=== PATIENT | female | born 1975 | race African-American/Black ===

== ENCOUNTER → 2016-08-11 | Outpatient (CLI) | payer BC, OTHER ==
[~2016-08-11] MED LIST: AMINO ACID1 EACH; AMOX TR-K CLV1 EAC3 PO; AMOXICILLIN 50500 MG PO; ANTACID650 MG PO; BIRTH CONTROL; CARVEDILOL12.5 MG PO; CELLCEPT 250 M250 M1 PO; CITRATE OF MAG296 ML PO; COLACE100 MG PO; COZAAR 50 MG TA50 M2 PO; DIFLUCAN150 MG PO; DOXYCYCLINE 10100 MG PO; KEFLEX500 MG PO; LASIX 40 MG TAB40 M2 PO; MEDROXYPROGESTE10 MG PO; METOLAZONE 2.52.5 M1 PO; MYFORTIC360 MG PO; NORA-BE0.35 MG PO; NORCO 5-325 TA1 EACH PO; PERCOCET 10-321 EACH PO; PREDNISONE 5 MG5 M1 PO; PROBIOTIC1 EAC1 PO; PROGRAF1 MG PO; PROTONIX40 M2 PO; VALIUM2 MG PO; VALIUM5 MG PO; VALTREX 500 MG500 M1 PO; VITAMIN D1000 UNI2 PO; VITAMIN D2000 UNIT PO; VITAMIN D5000 UNIT; ZYRTEC10 M2 PO
== END ==
LOC: CAT 09:31
DX: K44.9 Diaphragmatic hernia without obstruction or gangrene (principal); R50.9 Fever, unspecified

== ENCOUNTER 2017-03-23 16:27 | Emergency (ER) | payer BC, OTHER ==
[~2017-03-23] VITALS: Ht 167.6 cm; Wt 70.8 kg
[2017-03-23 17:25] LABS: HEMATOCRIT 25.7 % (37.0-47.0); MCH 25.5 pg (26.0-34.0); MCHC 31.2 g/dL (28.0-37.0); MCV 81.6 fL (80.0-100.0); PLATELET COUNT 241 thou/uL (150-400); RBC 3.15 mil/uL (4.20-5.00); RDW 18.9 % (10.5-14.5); WBC 4.7 thou/uL (4.0-11.0)
[2017-03-23 17:33] LABS: ANION GAP 11 mmol/L (7-16); BUN 43 mg/dL (7-18); CALCIUM 8.7 mg/dL (8.5-10.1); CHLORIDE 105 mmol/L (98-107); CO2 22 mmol/L (21-32); CREATININE 6.6 mg/dL (0.6-1.0); GLUCOSE 93 mg/dL (74-106); POTASSIUM 3.9 mmol/L (3.5-5.1); SODIUM 138 mmol/L (136-145)
[2017-03-23 17:38] LABS: ALBUMIN 3.2 g/dL (3.4-5.0); DIRECT BILIRUBIN < 0.1 mg/dL (<0.1-0.3); SGOT 9 U/L (15-37); SGPT 12 U/L (30-65); TOTAL BILIRUBIN 0.2 mg/dL (<0.1-1.0); TOTAL PROTEIN 7.5 g/dL (6.4-8.2)
[2017-03-23 17:39] LABS: URINE BILIRUBIN NEGATIVE (Negative); URINE BLOOD NEGATIVE (Negative); URINE CLARITY CLEAR; URINE COLOR YELLOW; URINE GLUCOSE-RANDOM* NEGATIVE (Negative); URINE KETONES NEGATIVE (Negative); URINE LEUKOCYTES NEGATIVE (Negative); URINE NITRITE NEGATIVE (Negative); URINE PROTEIN (DIPSTICK) 2+ (Negative); URINE UROBILINOGEN 0.2 E.U./dl (0.2-1.0)
[2017-03-23] MEDS ORDERED: COREG25 MG PO (17:44)
[2017-03-23 17:45] LABS: BACTERIA None Seen /HPF (None Seen); CASTS None Seen /LPF (None Seen); CRYSTALS None Seen /LPF (None Seen); SQUAMOUS 0-3 Few /LPF (0-3); URINE RBC None Seen /HPF (0-2); URINE WBC 0-5 Rare /HPF (0-5)
[2017-03-23] MEDS ORDERED: VITAMIN D2000 UNIT PO (17:46)
[2017-03-23 17:48] LABS: ABSOLUTE NEUTROPHILS 3.5 thou/uL (1.4-8.2)
[2017-03-23] MEDS ORDERED: PROGRAF1 MG PO (17:48)
[2017-03-23 17:49] LABS: ANISOCYTOSIS 2+; OVALOCYTES 1+; POIKILOCYTOSIS 1+
[2017-03-23] MEDS ORDERED: TACROLIMUS1 MG PO (17:49)
[2017-03-23] MEDS ORDERED: ANTACID325 MG PO (17:51)
[2017-03-23] MEDS ORDERED: HYDRALAZINE 2525 MG PO (17:52)
[2017-03-23] MEDS ORDERED: PROTONIX40 M1 PO (17:52)
[2017-03-23] MEDS ORDERED: ZYRTEC 10 MG TA10 MG PO (17:53)
[2017-03-23] MEDS ORDERED: MYFORTIC360 MG PO (17:55)
[2017-03-23] MEDS ORDERED: HYDRALAZINE HC100 MG PO (18:08)
[2017-03-23 18:50] VITALS: BP 173/106
[2017-10-19] MEDS ORDERED: AMLODIPINE BESYL5 M1 PO (16:23)
[2017-10-19] MEDS ORDERED: COZAAR100 MG PO (16:23)
[2017-10-19] MEDS ORDERED: CARVEDILOL25 MG PO (16:23)
[2017-11-05] MEDS ORDERED: CARDURA2 MG PO (08:27)
[2017-11-05] MEDS ORDERED: PREDNISONE 5 MG5 M1 PO (08:27)
[2017-11-05] MEDS ORDERED: NEPHROCAPS SOFT1 CAP PO (08:28)
[2017-11-05] MEDS ORDERED: TUMS PO (08:28)
== END 2017-03-23 18:56 | disposition home or self-care (01) ==
LOC: ER 16:27
PROVIDERS: Emergency Medicine
DX: I16.0 Hypertensive urgency (principal); I12.9 Hypertensive chronic kidney disease with stage 1 through stage 4 chronic kidney disease, or unspecified chronic kidney disease; N18.9 Chronic kidney disease, unspecified; D64.9 Anemia, unspecified; M19.90 Unspecified osteoarthritis, unspecified site; K21.9 Gastro-esophageal reflux disease without esophagitis; Z88.1 Allergy status to other antibiotic agents

== ENCOUNTER 2017-04-17 18:15 | Emergency (ER) | payer BC, OTHER ==
[~2017-04-17] VITALS: Ht 167.6 cm; Wt 71.2 kg
[~2017-04-17 18:15] MED LIST changes: +ANTACID325 MG PO; +COREG25 MG PO; +HYDRALAZINE 2525 MG PO; +HYDRALAZINE HC100 MG PO; +PROTONIX40 M1 PO; +TACROLIMUS1 MG PO; +ZYRTEC 10 MG TA10 MG PO
[2017-04-17] MEDS ORDERED: DILTIAZEM ER360 MG PO (18:30)
[2017-04-17] MEDS ORDERED: PREDNISONE 5 MG5 M1 PO (18:31)
[2017-04-17] MEDS ORDERED: HYDROXYZINE HCL25 M1 PO (18:32)
[2017-04-17] MEDS ORDERED: OSELB75 PO (19:22)
[2017-04-17 19:29] VITALS: BP 146/95
[2017-10-19] MEDS ORDERED: COZAAR100 MG PO (16:23)
[2017-10-19] MEDS ORDERED: CARVEDILOL25 MG PO (16:23)
[2017-10-19] MEDS ORDERED: AMLODIPINE BESYL5 M1 PO (16:23)
[2017-11-05] MEDS ORDERED: PREDNISONE 5 MG5 M1 PO (08:27)
[2017-11-05] MEDS ORDERED: CARDURA2 MG PO (08:27)
[2017-11-05] MEDS ORDERED: NEPHROCAPS SOFT1 CAP PO (08:28)
[2017-11-05] MEDS ORDERED: TUMS PO (08:28)
== END 2017-04-17 19:38 | disposition home or self-care (01) ==
LOC: ER 18:15
DX: J10.1 Influenza due to other identified influenza virus with other respiratory manifestations (principal); I10 Essential (primary) hypertension; M06.9 Rheumatoid arthritis, unspecified; K21.9 Gastro-esophageal reflux disease without esophagitis; Z86.2 Personal history of diseases of the blood and blood-forming organs and certain disorders involving the immune mechanism; Z88.1 Allergy status to other antibiotic agents; Z94.0 Kidney transplant status

== ENCOUNTER 2017-04-20 19:53 | Inpatient (IN) | payer BC, OTHER ==
[~2017-04-20] VITALS: Ht 167.6 cm; Wt 71.2 kg
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
--- NOTE | ~2017-04-20 | 2DMMODE ---
[facility] [address] [place] [address] 2 D/M-MODE ECHOCARDIOGRAM Name: KOURTNEY VANCE Room #: 426-P ADM IN M.R.#: [id number] Admission: 04/21/17 Attend Phys: Solomon Taveras MD Discharge: Date of : 75 Date of Service: 04/23/17 1408 Report #: [id number] THIS REPORT FOR: //name// APPROVED REPORT Study performed: 04/23/2017 13:18:25 EXAM: Comprehensive 2D, Doppler, and color-flow Echocardiogram Patient Location: Echo lab Room #: 426 Status: routine BSA: 1.78 HR: 74 bpm BP: 131/93 mmHg Other Information Study Quality: Good Indications Hypertension/HDD 2D Dimensions RVDd: 26.41 mm LVEF(%): 63.97 (>50%) IVSd: 11.77 (7-11mm) LVOT Diam: 18.06 (18-24mm) LVDd: 47.33 mm PWd: 11.66 (7-11mm) LVDs: 30.86 (25-40mm) Aortic Root: 25.82 mm IVC: 12.00 mm Mcclain's LVEF: 63.97 % Volumes Left Atrial Volume (Systole) Single Plane 4CH: 76.48 mL Single Plane 2CH: 59.69 mL LA ESV Index: 44.00 mL/m2 Aortic Valve AoV Peak Ernie.: 1.58 m/s AO Peak Gr.: 9.95 mmHg LVOT Max P.26 mmHg LVOT Max V: 1.35 m/s ENID Vmax: 2.19 cm2 Mitral Valve E/A Ratio: 0.9 MV Decel. Time: 292.63 ms MV E Max Ernie.: 0.95 m/s [facility] [place] [address] 2 D/M-MODE ECHOCARDIOGRAM Name: KOURTNEY VANCE Room #: 426-P ADM IN M.R.#: [id number] Admission: 04/21/17 Attend Phys: Solomon Taveras MD Discharge: Date of : 75 Date of Service: 04/23/17 1408 Report #: [id number] A Ernie.: 1.06 m/s MV PHT: 84.86 ms IVRT: 96.89 ms Pulmonary Valve PV Peak Ernie.: 1.10 m/s PV Peak Gr.: 4.83 mmHg DC End Vmax: 1.31 m/s Pulmonary Vein P Vein S: 0.57 m/s P Vein A: 0.22 m/s P Vein D: 0.32 m/s P Vein A Dur.: 101.5 msec P Vein S/D Ratio: 1.78 Left Ventricle The left ventricle is normal size. There is normal LV segmental wall motion. Mild concentric left ventricular hypertrophy. The left ventricular systolic function is normal. The left ventricular ejection fraction is within the normal range. LVEF is 60-65%. Left ventricular filling pattern is normal for age. Right Ventricle The right ventricle is normal size. The right ventricular systolic function is normal. Atria Left atrium is dilated. The right atrium size is normal. Aortic Valve The aortic valve is normal in structure. Trace aortic regurgitation. There is no aortic valvular stenosis. Mitral Valve The mitral valve is normal in structure. Mild mitral regurgitation. No evidence of mitral valve stenosis. Tricuspid Valve The tricuspid valve is normal in structure. There is no tricuspid valve regurgitation noted. Pulmonic Valve The pulmonary valve is normal in structure. Trace pulmonic regurgitation. Great Vessels The aortic root is normal in size. IVC is normal in size and collapses >50% with inspiration. [facility] [address] [place] [address] 2 D/M-MODE ECHOCARDIOGRAM Name: KOURTNEY VANCE Room #: 426-P ADM IN M.R.#: [id number] Admission: 04/21/17 Attend Phys: Solomon Taveras MD Discharge: Date of : 75 Date of Service: 04/23/17 1408 Report #: [id number] Pericardium Trace pericardial effusion. <Conclusion> The left ventricular systolic function is normal. Mild concentric left ventricular hypertrophy. There is normal LV segmental wall motion. LVEF 60-65%. Left atrium is dilated. The aortic valve is normal in structure. No stenosis. Trace aortic regurgitation. The mitral valve is normal in structure. Mild mitral regurgitation. Trace pericardial effusion. <ELECTRONICALLY SIGNED> By: Rg Swan MD, [facility] 04/23/17 1408 1408 1408 Rg Swan MD, FACC /INF
--- NOTE | ~2017-04-20 | H ---
[facility] [place] [address] HISTORY AND PHYSICAL Name: KOURTNEY VANCE Room #: 426-P ADM IN M.R.#: [id number] Admission: 04/21/17 Attend Phys: Solomon Taveras MD Discharge: Date of : 75 Report #: [id number] THIS REPORT FOR: //name// CC: Solomon Franz Box REASON FOR ADMISSION: Inability to eat and drink with decreased p.o. intake along with slurred speech. HISTORY OF PRESENT ILLNESS: This is a 41-year-old with extensive past medical history. She suffers from end-stage renal disease. She ended-up being on dialysis for some time and had a kidney transplantation after that. Her kidney transplantation lasted for a few years and was complicated by major rejection episodes, antibody-mediated, requiring numerous treatments with IVIG, Velcade, rituximab, Thymoglobulin, plasmapheresis. The most recent was back in July. She follows with Dr. Parks in our kidney clinic. She is maintained on triple immunosuppressive medications including Myfortic, Prograf, prednisone. She also carries a diagnosis of limited scleroderma/mixed connective tissue disorder. She had some issues with decreased p.o. intake in the last 24 hours. She also reported that she had some issues with slurred speech and difficulty finding speech. She was seen in the Emergency Room a few days ago and was diagnosed with flu. She was treated accordingly. However, because of the worsening of her neurological symptoms, she presented for further evaluation and management. She denies any numbness in any part of her body. No loss of power in any part of her body. No headache. She denies blurred vision. Initially, it was thought that she will be given IV fluid and discharged home. However, because of her slurred speech, she was admitted for further evaluation and management after she was found to have an abnormal CT of her head. PAST MEDICAL HISTORY: 1. Scleroderma/connective tissue disorder. 2. Hypertension. 3. Status post kidney transplantation. 4. Raynaud's phenomenon. 5. Anemia. 6. Numerous rejection episodes, antibody-mediated. 7. IJ catheter placement. 8. History of pleuritis. 9. History of pericarditis. PAST SURGICAL HISTORY: Renal transplant with numerous biopsies. MEDICATIONS: 1. Valcyte. 2. Carvedilol. 3. Tacrolimus. 4. Sodium bicarb. [address] [address] HISTORY AND PHYSICAL Name: KOURTNEY VANCE Room #: 426-P [facility] IN M.R.#: [id number] Admission: 04/21/17 Attend Phys: Solomon Taveras MD Discharge: Date of : 75 Report #: [id number] 5. Mycophenolate. 6. Diltiazem. 7. Prednisone. ALLERGIES: VANCOMYCIN. SOCIAL HISTORY: No drug or alcohol abuse. FAMILY HISTORY: Significant for hyperlipidemia and heart disease. REVIEW OF SYSTEMS: GENERAL: No fever or chills, but significant for weakness. CARDIOVASCULAR: No chest pain or palpitation. PULMONARY: No cough or hemoptysis. GASTROINTESTINAL: As per the history of present illness. GENITOURINARY: No frequency, no urgency. NEUROLOGIC: As per the history of present illness. PHYSICAL EXAMINATION: GENERAL: Alert, oriented. VITAL SIGNS: Blood pressure is marginally elevated at 135/113. HEAD AND NECK: No jugular venous distention. CHEST: Decreased air entry bilaterally. CARDIOVASCULAR: No rub detected. ABDOMEN: Soft, nontender with no tenderness over the graft. LOWER EXTREMITIES: No edema. LABORATORY DATA: Reviewed. Hemoglobin is 9.3. Anion gap is 18, BUN is 48, creatinine is 8.4 above her baseline of 6.5. Total protein is mildly elevated at 9. UA with +2 protein. Urine, yeast is present. ASSESSMENT, IMPRESSION AND PLAN: 1. Acute kidney injury. 2. Chronic kidney disease. 3. Chronic immunosuppression. 4. Abnormal CT. 5. Remote history of pericarditis and pericardial effusion. 6. Chronic immunosuppressive status. 7. Elevated protein. 8. Anemia. 9. Metabolic acidosis. 10. Recent flu. Given the CT findings, we will proceed with an MRI evaluation. We will ask Neurology to evaluate. Chest x-ray with worsening cardiomegaly and we will get an echo to evaluate given her history of pericardial effusion and pericarditis in the past. 11. Blood pressure seems to be okay and will need further adjustment of her [address] [address] HISTORY AND PHYSICAL Name: KOURTNEY VANCE Room #: 426-[facility] IN M.R.#: [id number] Admission: 04/21/17 Attend Phys: Solomon Taveras MD Discharge: Date of : 75 Report #: [id number] blood pressure medications. I will review her outpatient medications and resume. 12. Acidosis is related to her chronic kidney disease and we will resume sodium bicarb. 13. Resume her immunosuppressive medications. 14. We will coordinate care with other team members. <ELECTRONICALLY SIGNED> By: Trent Christine MD 04/21/17 1151 1016 1110 Trent Christine MD /nt
--- NOTE | ~2017-04-20 | EKG ---
[address] [facility]: [place] [address] ELECTROCARDIOGRAM REPORT Name: KOURTNEY VANCE Room #: 426-P ADM IN M.R.#: [id number] Admission: 04/21/17 Attend Phys: Solomon Taveras MD Discharge: Date of : 75 Report #: [id number] THIS REPORT FOR: //name// [facility] ED Test Date: 2017-04-20 Test Time: 21:07:25 Pat Name: KOURTNEY VANCE Department: Room: 426 Gender: F First Assist: ELEANN : 1975 Requested By: Amee Delgado Order Number: [id number] MD: Sammy Quiroz Measurements Intervals [place] Rate: 71 P: -19 [place]: 229 QRS: 90 QRSD: 103 T: 86 QT: 394 QTc: 429 Interpretive Statements Sinus rhythm Prolonged [place] interval Left atrial enlargement Borderline right axis deviation Low voltage, extremity leads Left ventricular hypertrophy Compared to ECG 05/12/2015 13:53:08 First degree AV block now present Low QRS voltage now present Left ventricular hypertrophy now present Electronically Signed On 04-21-2017 13:24:13 ACTUARIAL ASSOCIATE by Sammy Quiroz [email or web address] <ELECTRONICALLY SIGNED> By: Sammy Quiroz MD 04/21/17 1324 06 06 Sammy Quiroz MD /EPI
--- NOTE | ~2017-04-20 | HC ---
[facility] [place] [address] CONSULTATION Name: KOURTNEY VANCE Room #: 426-P [facility] IN M.R.#: [id number] Admission: 04/21/17 Attend Phys: Solomon Taveras MD Discharge: 04/24/17 Date of : 75 Report #: [id number] THIS REPORT FOR: //name// CC: Solomon Freitas DATE OF SERVICE: 04/22/2017 HISTORY OF PRESENT ILLNESS: This is a 41-year-old female patient who was evaluated because the patient had episodes of speech difficulty. On Sunday, she had multiple episodes. It lasted few minutes. She does not believe it was associated with any focal deficit. They came spontaneously. They were moderately severe and then, they became better. REVIEW OF SYSTEMS: Pretty extensive in this patient. This patient has a history of pretty severe collagen vascular disorder. She follows up with Dr. Freitas for that. She has kidney failure and she has renal transplant. She follows up with Dr. Parks for that. Renal transplant was done at [facility]. She had a premature menopause looks like because the last period was more than a year ago. Her test is negative. She never had children. Review of systems also indicated that she recently did have influenza. She denies any prior history of stroke. She did have some headache associated with this. She used to be on dialysis. She has a history of hypertension and acid reflux disease. Otherwise, she is not complaining of any new eye, ENT, cardiac, respiratory, musculoskeletal, constitutional, dermatological, hematological, psychiatric, throat, allergic symptom associated with present symptomatology. A 14-point review of system was otherwise noncontributory. PAST MEDICAL HISTORY: Positive for renal transplant and collagen vascular disorder. FAMILY HISTORY: Unremarkable. SOCIAL HISTORY: She does not smoke or drink any alcohol. PHYSICAL EXAMINATION: Indicates she is alert, responsive, able to follow simple and complex command. Her speech, concentration, fund of knowledge and memory is at her baseline. Cranial nerve examination 2-12 is unremarkable. Strength, sensation, reflexes and tones are symmetrical. Her reflexes are still present. She has no cerebellar sign or papilledema. There is no meningeal sign. There is no carotid bruit. There is no thyroid mass. She is reasonably well-developed individual who does not have any dysmorphic features of eyes, ears and face. Her vision and hearing looks adequate. Difficult to feel pulses, but she does not appear to have any edema, cyanosis or jaundice. Cardiac examination does not appear to be showing any definite abnormality. No respiratory difficulty was noted. There is no rhonchi was noticed on either [facility] [address] [place] [address] CONSULTATION Name: KOURTNEY VANCE Room #: [address] [place] [address] IN M.R.#: [id number] Admission: 04/21/17 Attend Phys: Solomon Taveras MD Discharge: 04/24/17 Date of : 75 Report #: [id number] side. Her blood pressure is 109/71, respirations 18, pulse is 75, temperature is 98.9. LABORATORY DATA: Her last hemoglobin is 7.8. Last GFR is 7. She did have a CT scan of the head, which showed multiple lesions, but they did not appear to be acute. IMPRESSION: The patient presents with symptoms suggestive of transient ischemic attack. Her CT scan is abnormal, but she does have a pretty significant collagen vascular disorder. We need to check her for ischemic diseases including vasculitis in this patient. With that is excluded, she may also need workup for chronic immune suppression related disorder. RECOMMENDATIONS: 1. I agree with MRI. 2. We will do an MRA. 3. I agree with echo. 4. Rest of the workup will depend upon the above testing. She does need a lipid profile to evaluate for statin and I will ask the nurses to check with you to see if she can be on an aspirin. I do not know whether that is allowed with transplant or not. Thank you very much for this referral and if you have any question, please feel free to contact me. <ELECTRONICALLY SIGNED> By: Fabrice Spear MD 04/28/17 1549 1104 1750 Fabrice Spear MD /nt
[~2017-04-20 19:53] MED LIST changes: +DILTIAZEM ER360 MG PO; +HYDROXYZINE HCL25 M1 PO; +OSELB75 PO
[2017-04-20 20:10] VITALS: BP 112/76
[2017-04-20 20:55] LABS: URINE BILIRUBIN NEGATIVE (Negative); URINE BLOOD NEGATIVE (Negative); URINE CLARITY CLEAR; URINE COLOR YELLOW; URINE GLUCOSE-RANDOM* NEGATIVE (Negative); URINE KETONES NEGATIVE (Negative); URINE LEUKOCYTES NEGATIVE (Negative); URINE NITRITE NEGATIVE (Negative); URINE PROTEIN (DIPSTICK) 2+ (Negative); URINE UROBILINOGEN 0.2 E.U./dl (0.2-1.0)
[2017-04-20 21:21] LABS: BACTERIA None Seen /HPF (None Seen); CASTS None Seen /LPF (None Seen); CRYSTALS None Seen /LPF (None Seen); SQUAMOUS 4-10 Moderate /LPF (0-3); URINE RBC 0-2 Rare /HPF (0-2); URINE WBC None Seen /HPF (0-5); YEAST Present (None Seen)
[2017-04-20 22:32] LABS: HEMOGLOBIN 9.3 gm/dL (12.0-15.0); MCH 26.1 pg (26.0-34.0); MCHC 31.1 g/dL (28.0-37.0); MCV 84.1 fL (80.0-100.0); PLATELET COUNT 274 thou/uL (150-400); RBC 3.57 mil/uL (4.20-5.00); RDW 16.6 % (10.5-14.5); WBC 4.8 thou/uL (4.0-11.0)
[2017-04-20 22:47] LABS: CALCIUM 8.8 mg/dL (8.5-10.1); CREATININE 8.4 mg/dL (0.6-1.0); POTASSIUM 4.1 mmol/L (3.5-5.1)
[2017-04-20 22:51] LABS: ALBUMIN 4.1 g/dL (3.4-5.0); TOTAL BILIRUBIN 0.2 mg/dL (<0.1-1.0)
[2017-04-20 23:12] LABS: ABSOLUTE NEUTROPHILS 2.4 thou/uL (1.4-8.2); ANISOCYTOSIS 1+; POLYCHROMASIA OCCASIONAL
[2017-04-20 23:13] LABS: LARGE PLATELETS OCCASIONAL; OVALOCYTES 1+
[2017-04-21] VITALS (7 sets, daily range): BP systolic 112–146; BP diastolic 76–113
[2017-04-22 03:24] VITALS: BP 137/82
[2017-04-22 03:50] LABS: HEMATOCRIT 24.6 % (37.0-47.0); HEMOGLOBIN 7.8 gm/dL (12.0-15.0); MCH 26.3 pg (26.0-34.0); MCHC 31.6 g/dL (28.0-37.0); MCV 83.2 fL (80.0-100.0); RBC 2.96 mil/uL (4.20-5.00); RDW 16.3 % (10.5-14.5); WBC 3.1 thou/uL (4.0-11.0)
[2017-04-22 04:09] LABS: ALBUMIN 2.9 g/dL (3.4-5.0); CALCIUM 8.3 mg/dL (8.5-10.1); POTASSIUM 4.2 mmol/L (3.5-5.1); TOTAL BILIRUBIN 0.1 mg/dL (<0.1-1.0)
[2017-04-22 04:10] LABS: CREATININE 7.4 mg/dL (0.6-1.0)
[2017-04-22 07:50] VITALS: BP 109/71
[2017-04-22 09:06] LABS: COMPLEMENT-C3 161 mg/dL (82-167); COMPLEMENT-C4 39 mg/dL (14-44)
[2017-04-22 20:00] VITALS: BP 150/107
[2017-04-23 04:30] VITALS: BP 139/92
[2017-04-23 06:08] LABS: HEMATOCRIT 24.9 % (37.0-47.0); HEMOGLOBIN 7.9 gm/dL (12.0-15.0); MCH 26.2 pg (26.0-34.0); MCHC 31.5 g/dL (28.0-37.0); MCV 83.1 fL (80.0-100.0); RDW 16.2 % (10.5-14.5); WBC 3.2 thou/uL (4.0-11.0)
[2017-04-23 06:33] LABS: ALBUMIN 2.9 g/dL (3.4-5.0); CALCIUM 8.4 mg/dL (8.5-10.1); CREATININE 7.6 mg/dL (0.6-1.0); POTASSIUM 4.6 mmol/L (3.5-5.1); TOTAL BILIRUBIN 0.2 mg/dL (<0.1-1.0)
[2017-04-23 07:06] VITALS: BP 131/93
[2017-04-23 15:23] VITALS: BP 175/111
[2017-04-23 17:37] LABS: TSH 1.041 uIU/mL (0.358-3.740)
[2017-04-23 18:56] LABS: PROTIME 10.5 Seconds (9.3-11.4)
[2017-04-23 19:30] VITALS: BP 140/93
[2017-04-24 03:00] VITALS: BP 132/92
[2017-04-24 07:00] VITALS: BP 134/84
[2017-04-24 08:07] LABS: ALBUMIN 3.1 g/dL (3.4-5.0); CALCIUM 8.7 mg/dL (8.5-10.1); CREATININE 7.5 mg/dL (0.6-1.0); PHOSPHORUS 5.4 mg/dL (2.5-4.9); POTASSIUM 4.6 mmol/L (3.5-5.1)
[2017-04-24 12:28] LABS: CSF GLUCOSE 60 mg/dL (40-70); CSF PROTEIN 60 mg/dL (15-45)
[2017-04-24 12:50] LABS: CSF CLARITY CLEAR; CSF COLOR COLORLESS; CSF RBC 0 /mm3; VOLUME 9 ml
[2017-04-24 12:51] LABS: CSF WBC 2 /mm3 (0-10)
[2017-04-24] MEDS ORDERED: ASPIR 8181 MG PO (13:53)
[2017-04-24] MEDS ORDERED: CARVEDILOL12.5 MG PO (13:53)
[2017-04-24] MEDS ORDERED: TACROLIMUS1 MG PO ×2 (13:53)
[2017-04-24 14:57] VITALS: BP 122/88
[2017-04-24 15:47] VITALS: BP 134/84
[2017-04-24 15:58] LABS: CHOLESTEROL 201 mg/dL (<200); HDL CHOLESTEROL 48 mg/dL (>40); LDL CHOLESTEROL 134 mg/dL (<100); TC:HDL 4.2 Ratio (Not establshd); TRIGLYCERIDE 95 mg/dL (<150); VLDL 19 mg/dL (<40)
[2017-04-24 17:12] VITALS: BP 122/88
[2017-04-24] MEDS ORDERED: VALTREX 500 MG500 MG PO (17:32)
[2017-04-24 18:10] LABS: ANA INTERPRETATION Positive (())
[2017-04-24 23:07] LABS: SERUM ALBUMIN 3.7 g/dL (3.5-5.5)
[2017-04-26 14:13] LABS: CSF IgG 10.1 mg/dL (0.0-8.6)
[2017-10-19] MEDS ORDERED: COZAAR100 MG PO (16:23)
[2017-10-19] MEDS ORDERED: AMLODIPINE BESYL5 M1 PO (16:23)
[2017-10-19] MEDS ORDERED: CARVEDILOL25 MG PO (16:23)
[2017-11-05] MEDS ORDERED: PREDNISONE 5 MG5 M1 PO (08:27)
[2017-11-05] MEDS ORDERED: CARDURA2 MG PO (08:27)
[2017-11-05] MEDS ORDERED: TUMS PO (08:28)
[2017-11-05] MEDS ORDERED: NEPHROCAPS SOFT1 CAP PO (08:28)
== END 2017-04-24 17:51 | disposition home or self-care (01) | DRG 947 ==
LOC: ER 19:53 → 4E 04-21 00:09 → EROBS 04-21 00:09 → 4E 04-21 01:26
PROVIDERS: Hospitalist; Internal Medicine Nephrology; Nurse Practitioner Family; Psychiatry & Neurology Neuromuscular Medicine
PROC: B01B1ZZ Fluoroscopy of Spinal Cord using Low Osmolar Contrast (ICD-10-PCS; principal; 2017-04-24)
PROC: 009U3ZX Drainage of Spinal Canal, Percutaneous Approach, Diagnostic (ICD-10-PCS; principal; 2017-04-24)
DX: R53.1 Weakness (principal); N18.6 End stage renal disease; E87.2 Acidosis; R47.01 Aphasia; Z94.0 Kidney transplant status; N17.9 Acute kidney failure, unspecified; I12.0 Hypertensive chronic kidney disease with stage 5 chronic kidney disease or end stage renal disease; D64.9 Anemia, unspecified; E86.0 Dehydration; I73.00 Raynaud's syndrome without gangrene; M34.9 Systemic sclerosis, unspecified; M32.9 Systemic lupus erythematosus, unspecified; Z79.899 Other long term (current) drug therapy; Z83.49 Family history of other endocrine, nutritional and metabolic diseases; Z88.1 Allergy status to other antibiotic agents; Z82.49 Family history of ischemic heart disease and other diseases of the circulatory system
CPT/HCPCS: 10084

== ENCOUNTER 2017-06-26 22:41 | Emergency (ER) | payer BC, OTHER ==
[~2017-06-26] VITALS: Ht 167.6 cm; Wt 72.1 kg
[~2017-06-26 22:41] MED LIST changes: +ASPIR 8181 MG PO; +VALTREX 500 MG500 MG PO
[2017-06-26] MEDS ORDERED: COREG25 MG PO (23:05)
[2017-06-26] MEDS ORDERED: TUMS PO (23:08)
[2017-06-26] MEDS ORDERED: VALACYCLOVIR500 MG PO (23:08)
[2017-06-26 23:55] LABS: CALCIUM 9.6 mg/dL (8.5-10.1); POTASSIUM 4.9 mmol/L (3.5-5.1)
[2017-06-26 23:59] LABS: ALBUMIN 3.9 g/dL (3.4-5.0); TOTAL BILIRUBIN 0.3 mg/dL (<0.1-1.0); TOTAL PROTEIN 8.6 g/dL (6.4-8.2)
[2017-06-27 00:15] LABS: URINE BILIRUBIN NEGATIVE (Negative); URINE BLOOD NEGATIVE (Negative); URINE CLARITY CLEAR; URINE COLOR YELLOW; URINE GLUCOSE-RANDOM* NEGATIVE (Negative); URINE KETONES NEGATIVE (Negative); URINE LEUKOCYTES NEGATIVE (Negative); URINE NITRITE NEGATIVE (Negative); URINE PROTEIN (DIPSTICK) 2+ (Negative); URINE SPECIFIC GRAVITY 1.015 (1.005-1.035); URINE UROBILINOGEN 0.2 E.U./dl (0.2-1.0)
[2017-06-27 00:27] LABS: CASTS None Seen /LPF (None Seen); MUCUS None Seen strn/LPF (None Seen); SQUAMOUS 0-3 Few /LPF (0-3)
[2017-06-27 00:28] LABS: URINE RBC None Seen /HPF (0-2); URINE WBC None Seen /HPF (0-5)
[2017-06-27 00:29] LABS: BACTERIA None Seen /HPF (None Seen); CRYSTALS None Seen /LPF (None Seen)
[2017-06-27 00:32] LABS: HEMATOCRIT 35.1 % (37.0-47.0); HEMOGLOBIN 11.1 gm/dL (12.0-15.0); MCH 28.4 pg (26.0-34.0); MCHC 31.6 g/dL (28.0-37.0); PLATELET COUNT 236 thou/uL (150-400); RDW 19.7 % (10.5-14.5); WBC 4.7 thou/uL (4.0-11.0)
[2017-06-27 00:50] LABS: ABSOLUTE NEUTROPHILS 3.5 thou/uL (1.4-8.2); ANISOCYTOSIS 2+; METAMYELOCYTES 1 %
[2017-06-27 00:51] LABS: OVALOCYTES 1+; POLYCHROMASIA 1+
[2017-06-27] MEDS ORDERED: ZOFRAN ODT8 MG PO (01:34)
[2017-06-27 01:47] VITALS: BP 137/81
== END 2017-06-27 01:49 | disposition home or self-care (01) ==
LOC: ER 22:41
PROVIDERS: Emergency Medicine; Physician Assistant
DX: R19.7 Diarrhea, unspecified (principal); M32.9 Systemic lupus erythematosus, unspecified; I12.9 Hypertensive chronic kidney disease with stage 1 through stage 4 chronic kidney disease, or unspecified chronic kidney disease; N18.9 Chronic kidney disease, unspecified; Z94.0 Kidney transplant status; M19.90 Unspecified osteoarthritis, unspecified site; K21.9 Gastro-esophageal reflux disease without esophagitis

== ENCOUNTER → 2017-12-07 | Outpatient (CLI) | payer BC, OTHER ==
[~2017-12-07] MED LIST changes: +AMLODIPINE BESYL5 M1 PO; +CARDURA2 MG PO; +CARVEDILOL25 MG PO; +COZAAR100 MG PO; +NEPHROCAPS SOFT1 CAP PO; +TUMS PO; +VALACYCLOVIR500 MG PO; +ZOFRAN ODT8 MG PO
== END ==
LOC: RAD 13:57
DX: I51.7 Cardiomegaly (principal); J98.11 Atelectasis; J18.9 Pneumonia, unspecified organism

== ENCOUNTER 2018-01-05 13:28 | Inpatient (IN) | payer OTHER ==
[~2018-01-05] VITALS: Ht 167.6 cm; Wt 65.7 kg
--- NOTE | ~2018-01-05 | HC ---
[facility] [place] [address] CONSULTATION Name: KOURTNEY VANCE Room #: 455-P ADM IN M.R.#: [id number] Admission: 01/05/18 Attend Phys: Carl Metz MD Discharge: Date of : 75 Report #: [id number] THIS REPORT FOR: //name// CC: FAM unknown Carl Metz REASON FOR CONSULTATION: Not feeling well, fever of few weeks' duration. HISTORY OF PRESENT ILLNESS: This is a very well-known patient to me. She has an end-stage renal disease, who is maintained on dialysis every Sunday, and Sunday. She has a very complicated renal history, including dialysis from 8718-9551, utilizing a tunneled IJ catheter and class 3 and 5 lupus nephritis. In 2010, she received a donor kidney graft. This had functioned well until 2017, when the kidney failed and the patient was back on dialysis. Her post-transplant period was complicated by numerous episodes of rejection, including an antibody-mediated rejection in 2011, 2012 and 2016. She had been suffering from anemia for some time. She presented to the Emergency Room reporting that she has had some fever, right groin swelling. She also reported to some cough in the last couple of weeks. She has been feeling weak and tired. She tells me that her anemia has never been investigated. She is maintained on appropriate medications for her anemia in our dialysis unit. She only takes prednisone right now as a sort of immunosuppressive medication. She is off the Myfortic and Prograf. I am being consulted to manage her end-stage renal disease. PAST MEDICAL HISTORY: 1. Limited scleroderma. 2. Lupus nephritis. 3. Rheumatoid arthritis. 4. Hypertension. 5. End-stage renal disease. 6. Status post kidney transplant. 7. Numerous antibody-mediated rejection episodes. ALLERGIES: VANCOMYCIN. SOCIAL HISTORY: No drug or alcohol abuse. MEDICATIONS: Currently, the patient is maintained on the followin. Cardura. 2. Carvedilol. 3. Amlodipine. 4. Losartan. 5. Prednisone. 6. Calcium carbonate. REVIEW OF SYSTEMS: [facility] [address] [place] [address] CONSULTATION Name: KOURTNEY VANCE Room #: 455-P ADM IN M.R.#: [id number] Admission: 01/05/18 Attend Phys: Carl Metz MD Discharge: Date of : 75 Report #: [id number] GENERAL: Significant for fever and chills. CARDIOVASCULAR: Occasional cough and shortness of breath. PULMONARY: Occasional cough. GASTROINTESTINAL: Occasional nausea. GENITOURINARY: No frequency. LYMPHATIC AND HEMATOLOGIC: She reported to occasional fever and right groin swelling. PHYSICAL EXAMINATION: GENERAL: She is alert, oriented. VITAL SIGNS: Blood pressure is 146/89, pulse rate is 89. HEAD AND NECK: No jugular venous distention. CHEST: Decreased air entry bilaterally. CARDIOVASCULAR: Systolic murmur present. ABDOMEN: Soft, nontender. LOWER EXTREMITIES: There is a right groin swelling. No edema. LABORATORY DATA: Laboratory values reviewed. Hemoglobin was 6.6. Chemistry revealed sodium of 130, potassium of 4, BUN of 13 and creatinine of 5.6. Urine is pending. IMAGING: Chest x-ray was consistent with pulmonary edema. ASSESSMENT, IMPRESSION AND PLAN: 1. Symptomatic anemia. 2. End-stage renal disease. 3. Failed kidney transplant, status post numerous immunosuppressive medications for her antibody-mediated rejection. 4. Lupus. 5. Scleroderma. 6. Right groin swelling. 7. Pulmonary edema. 8. The patient was transfused yesterday. I will send appropriate anemia workup to rule out all possibilities, including hemolysis and other disease entities commonly seen in transplant patients who receive numerous immunosuppressive medications. 9. Might need Hematology to see. 10. Evaluate her right groin swelling with a CT. 11. Hemodialysis like her usual. 12. Once we obtain the iron studies, we will decide about the adjustment of her outpatient medications. <ELECTRONICALLY SIGNED> By: Trent Christine MD 01/09/18 0956 1015 2159 Trent Christine MD /nt
[2018-01-05 13:45] VITALS: BP 135/77
[2018-01-05 14:16] LABS: HEMOGLOBIN 6.6 gm/dL (12.0-15.0); MCH 27.4 pg (26.0-34.0); MCHC 33.6 g/dL (28.0-37.0); MCV 81.6 fL (80.0-100.0); PLATELET COUNT 247 thou/uL (150-400); RBC 2.42 mil/uL (4.20-5.00); WBC 4.4 thou/uL (4.0-11.0)
[2018-01-05 14:21] LABS: CALCIUM 8.4 mg/dL (8.5-10.1); CREATININE 4.3 mg/dL (0.6-1.0); POTASSIUM 3.2 mmol/L (3.5-5.1)
[2018-01-05 14:24] LABS: HEMATOCRIT 19.7 % (37.0-47.0)
[2018-01-05 15:22] LABS: ABSOLUTE NEUTROPHILS 2.7 thou/uL (1.4-8.2); ATYPICAL LYMPHS 2 %
[2018-01-05 15:23] LABS: MICROCYTES 1+
[2018-01-05 17:28] LABS: TSH 2.846 uIU/mL (0.358-3.740)
[2018-01-05 17:38] VITALS: BP 131/85
[2018-01-05 18:37] VITALS: BP 131/85
[2018-01-05 19:58] VITALS: BP 138/94; BP 150/83
[2018-01-06 04:23] VITALS: BP 157/111
[2018-01-06 05:55] LABS: HEMATOCRIT 22.5 % (37.0-47.0); HEMOGLOBIN 7.6 gm/dL (12.0-15.0); MCH 27.9 pg (26.0-34.0); MCHC 33.6 g/dL (28.0-37.0); MCV 83.1 fL (80.0-100.0); RBC 2.71 mil/uL (4.20-5.00); RDW 18.5 % (10.5-14.5); WBC 6.3 thou/uL (4.0-11.0)
[2018-01-06 06:10] LABS: CALCIUM 8.4 mg/dL (8.5-10.1); MAGNESIUM 1.9 mg/dL (1.8-2.4)
[2018-01-06 06:12] LABS: CREATININE 5.6 mg/dL (0.6-1.0)
[2018-01-06 08:00] VITALS: BP 146/89
[2018-01-06 15:16] VITALS: BP 139/97
[2018-01-06 18:35] LABS: URINE BLOOD 3+ (Negative); URINE CLARITY CLEAR; URINE COLOR RED; URINE GLUCOSE-RANDOM* NEGATIVE (Negative); URINE KETONES NEGATIVE (Negative); URINE PROTEIN (DIPSTICK) 3+ (Negative)
[2018-01-06 18:42] LABS: ICTOTEST (BILI CONFIRMATORY) Negative (Negative); URINE BILIRUBIN NEGATIVE (Negative); URINE LEUKOCYTES-REFLEX TRACE (Negative); URINE NITRITE-REFLEX POSITIVE (Negative)
[2018-01-06 19:00] LABS: CASTS None Seen /LPF (None Seen); CRYSTALS None Seen /LPF (None Seen); SQUAMOUS 0-3 Few /LPF (0-3); URINE RBC >20 Many /HPF (0-2); URINE WBC-REFLEX 6-15 Few /HPF (0-5); WBC CLUMPS Moderate (None Seen)
[2018-01-06 19:37] VITALS: BP 143/98
[2018-01-07] VITALS (7 sets, daily range): BP systolic 137–168; BP diastolic 98–117
[2018-01-07 07:54] LABS: ALBUMIN 2.1 g/dL (3.4-5.0); CALCIUM 8.4 mg/dL (8.5-10.1); POTASSIUM 4.2 mmol/L (3.5-5.1); TOTAL BILIRUBIN 0.4 mg/dL (<0.1-1.0); TOTAL PROTEIN 8.1 g/dL (6.4-8.2)
[2018-01-07 09:02] LABS: % SATURATION 34 % (20-39); IRON 37 ug/dL (50-170); TIBC 110 ug/dL (250-450)
[2018-01-07 12:06] LABS: COMPLEMENT-C3 119 mg/dL (82-167); COMPLEMENT-C4 22 mg/dL (14-44); HAPTOGLOBIN 439 mg/dL (34-200)
[2018-01-08 03:26] VITALS: BP 148/91
[2018-01-08 06:08] LABS: CALCIUM 8.4 mg/dL (8.5-10.1); MAGNESIUM 1.9 mg/dL (1.8-2.4); POTASSIUM 4.3 mmol/L (3.5-5.1)
[2018-01-08 06:09] LABS: CREATININE 9.6 mg/dL (0.6-1.0)
[2018-01-08 07:49] VITALS: BP 151/108
[2018-01-08 07:51] VITALS: BP 145/99
[2018-01-08 08:49] LABS: HEMOGLOBIN 7.9 gm/dL (12.0-15.0); MCH 27.4 pg (26.0-34.0); MCHC 33.1 g/dL (28.0-37.0); MCV 82.6 fL (80.0-100.0); RBC 2.9 mil/uL (4.20-5.00); RDW 19.4 % (10.5-14.5); WBC 6.7 thou/uL (4.0-11.0)
[2018-01-08 14:37] VITALS: BP 140/91
[2018-01-09 00:06] LABS: ADENOVIRUS Negative (Negative); INFLUENZA A Negative (Negative); INFLUENZA B Negative (Negative); METAPNEUMOVIRUS Negative (Negative); PARAINFLUENZA 1 Negative (Negative); PARAINFLUENZA 2 Negative (Negative); PARAINFLUENZA 3 Negative (Negative); RHINOVIRUS Negative (Negative); RSV A Negative (Negative); RSV B Negative (Negative)
[2018-01-09 04:07] VITALS: BP 122/78
[2018-01-09 05:53] LABS: HEMATOCRIT 22.4 % (37.0-47.0); HEMOGLOBIN 7.5 gm/dL (12.0-15.0); MCH 27.8 pg (26.0-34.0); MCHC 33.6 g/dL (28.0-37.0); MCV 82.7 fL (80.0-100.0); RBC 2.71 mil/uL (4.20-5.00); RDW 19.1 % (10.5-14.5); WBC 6.8 thou/uL (4.0-11.0)
[2018-01-09 06:02] LABS: CALCIUM 7.7 mg/dL (8.5-10.1); MAGNESIUM 1.8 mg/dL (1.8-2.4); POTASSIUM 4.5 mmol/L (3.5-5.1)
[2018-01-09 06:23] LABS: CREATININE 6.4 mg/dL (0.6-1.0)
[2018-01-09 07:35] VITALS: BP 136/91
[2018-01-09] MEDS ORDERED: MUCINEX600 MG PO (13:21)
[2018-01-09 13:22] VITALS: BP 137/96
[2018-01-09 13:35] VITALS: BP 136/91
[2018-01-14] MEDS ORDERED: VALACYCLOVIR500 MG PO (14:42)
[2018-01-14] MEDS ORDERED: NORVASC5 MG PO (15:12)
[2018-01-14] MEDS ORDERED: COREG25 MG PO (15:13)
[2018-01-14] MEDS ORDERED: COZAAR 25 MG TA25 M2 PO (15:15)
== END 2018-01-09 14:49 | disposition home or self-care (01) | DRG 682 ==
LOC: ER 13:28 → EROBS 16:37 → 4W 16:37
PROVIDERS: Hospitalist; Internal Medicine; Physician Assistant
PROC: 30233N1 Transfusion of Nonautologous Red Blood Cells into Peripheral Vein, Percutaneous Approach (ICD-10-PCS; principal; 2018-01-05)
PROC: 5A1D70Z Performance of Urinary Filtration, Intermittent, Less than 6 Hours Per Day (ICD-10-PCS; 2018-01-08)
DX: I12.0 Hypertensive chronic kidney disease with stage 5 chronic kidney disease or end stage renal disease (principal); N18.6 End stage renal disease; J96.01 Acute respiratory failure with hypoxia; Z94.0 Kidney transplant status; E87.1 Hypo-osmolality and hyponatremia; M06.9 Rheumatoid arthritis, unspecified; K21.9 Gastro-esophageal reflux disease without esophagitis; M32.9 Systemic lupus erythematosus, unspecified; D63.8 Anemia in other chronic diseases classified elsewhere; J20.8 Acute bronchitis due to other specified organisms; M34.9 Systemic sclerosis, unspecified; I73.00 Raynaud's syndrome without gangrene; R59.1 Generalized enlarged lymph nodes; Z99.2 Dependence on renal dialysis; Z79.899 Other long term (current) drug therapy; Z88.1 Allergy status to other antibiotic agents
CPT/HCPCS: 10045; 32100

== ENCOUNTER 2018-01-15 05:32 | Day surgery (SDC) | payer OTHER ==
[~2018-01-15] VITALS: Ht 152.4 cm; Wt 57.6 kg
--- NOTE | ~2018-01-15 | O ---
[facility] [place] [address] OPERATIVE REPORT Name: KOURTNEY VANCE Room #: DEP [facility] M.R.#: [id number] Admission: 01/15/18 Attend Phys: Sree Chadwick MD, Discharge: 01/15/18 Date of : 75 Report #: [id number] THIS REPORT FOR: //name// CC: FAM unknown Sree Chadwick DATE OF SERVICE: 01/15/2018 PREOPERATIVE DIAGNOSIS: Generalized lymphadenopathy with significant right groin lymphadenopathy. POSTOPERATIVE DIAGNOSIS: Generalized lymphadenopathy with significant right groin lymphadenopathy. PROCEDURE PERFORMED: Excision of superficial and deep right groin lymph nodes. SURGEON: Sree Chadwick M.D. SUPERVISOR EVAPORATOR: Medical student. ANESTHESIA: General endotracheal anesthesia. ESTIMATED BLOOD LOSS: Minimal (less than 5 mL). COMPLICATIONS: None appreciated. SPECIMENS: Lymph nodes from right groin to pathology. INDICATIONS: The patient is a 42-year-old -Spanish female with generalized lymphadenopathy that is significantly worsened in the right groin with associated discomfort. Concern was for a neoplastic process versus viral infectious process and as such, indication was for excisional biopsy today, which included both superficial and deep lymph nodes as they were matted together and the deep subfascial nodes require additional dissection. DESCRIPTION OF PROCEDURE: After explaining the risks, benefits and alternatives of the procedure with the patient in detail and obtaining consent, the patient was brought to the operating room and placed supine on the operating room table. After conducting a thorough timeout procedure verifying correct patient and procedure, the patient was given general endotracheal anesthesia. Once adequate anesthesia was obtained, her SCDs were hooked up to pneumatic compression device and she was given a preoperative dose of antibiotics in line with the SCIP protocol. The patient's abdomen was prepped and draped in standard surgical sterile fashion. A 10 mL of 0.5% Marcaine with epinephrine were used to anesthetize the skin overlying the right groin lymph nodes in question. A #10 bladed scalpel was used to create a 3 cm oblique incision following skin lines [address] [address] OPERATIVE REPORT Name: KOURTNEY VANCE Room #: DEP [facility] M.R.#: [id number] Admission: 01/15/18 Attend Phys: Sree Chadwick MD, Discharge: 01/15/18 Date of : 75 Report #: [id number] overlying the mass in question. Electrocautery was used to carry this down through skin and subcutaneous tissues to ensure hemostasis. I was able to circumferentially dissect out the superficial nodes, which were matted to deep nodes in the subfascial space and as such, the fascia was opened with electrocautery allowing me to elevate the deep nodes into the wound. The handheld Harmonic device was used to transect all lymphovascular structures to prevent lymphocele formation. Once transected, this was passed off the field as specimen. The wound was irrigated. Fascia was closed using 3-0 Vicryl in standard running fashion. I then closed the skin at the dermal level using interrupted 3-0 Vicryl sutures in standard fashion as well as skin was closed using running 4-0 Monocryl in standard subcuticular fashion. Dermabond glue was then applied to the skin wound. At the end of the procedure, all instrument, needle and sponge counts were correct. The patient tolerated the procedure without incident, was awakened in the operating room, transitioned to the recovery room in stable condition with no apparent complications. <ELECTRONICALLY SIGNED> By: Sree Chadwick MD, FACS 02/04/18 0902 1248 1324 Sree Chadwick MD, FACS /nt
--- NOTE | ~2018-01-15 | PATH ---
[facility] [address] [place] [address] PATHOLOGY RPT PROCEDURE Name: KOURTNEY VANCE Room #: DEP [facility] M.R.#: [id number] Admission: 01/15/18 Date of : 75 Discharge: 01/15/18 Report #: [id number] Path Case #: [id number] [facility] Accession Number: [id number] . 01 Material submitted: . RIGHT GROIN LYMPH NODE-F.S . 01 Clinical history: . Lymphadenitis and numerous enlarged lymph nodes in the groin. . 02 Diagnosis: Lymph node, right groin, excision: - Lymph node with mild acute lymphadenitis, reactive follicles, sinus histiocytosis, paracortical hyperplasia and sinusoidal plasmacytosis, please see comment. LBQ/01/23/2018 . 02 Comment: Examination of the right groin lymph node shows slightly effaced jose architecture with patent subcapsular sinuses with occasional reactive follicles, sinus histocytosis and sinusoidal plasmacytosis. There is also mild acute lymphadenitis noted. Definite Warren-Ruthie cells, metastatic carcinoma or granulomas are not identified. Immunophenotypic studies by flow cytometry do not show evidence of R-tyc-Ufxdsmq lymphoma and T-cell lymphoproliferative disorder (please see separate flow cytometry report, [facility] [id number]). To confirm flow cytometric findings and characterize the lymphoid cells in a tissue architectural context, immuohistochemical stains are performed with appropriate controls: . (Block A3) CD20 - Highlights B lymphoid cells within germinal centers and mantle zones CD3 - Highlights T lymphoid cells CD5 - Highlights T lymphoid cells CD10 - Highlights B lymphoid cells within germinal centers BCL6 - Highlights B lymphoid cells within germinal centers BCL2 - Highlights B and T lymphoid cells with lack of staining within germinal centers. CD30 - Highlights few scattered immunoblasts BCL1 - Negative CD138 - Highlights plasma cells CD23 - Highlights follicular dendritic meshworks [place] and lambda NADEEM - Polytypic . Based on the morphology, immunohistochemical staining pattern and flow cytometry, these findings are consistent with benign reactive lymph node. [address] [address] PATHOLOGY RPT PROCEDURE Name: KOURTNEY VANCE Room #: DEP [facility] M.R.#: [id number] Admission: 01/15/18 Date of : 75 Discharge: 01/15/18 Report #: [id number] Path Case #: [id number] Correlation and clinical findings is recommended. . (RA/[place]; 01/22/18) . Co-Review: Dr. Jessika Michaels . 02 Electronically signed: . Kaylene Dillard MD, Pathologist NPI- [id number] . 01 Gross description: . Specimen is received fresh from the OR labeled with the patient's name and "right groin lymph nodes", and consists of multiple enlarged lymph nodes measuring approximately 4.0 x 3.0 x 2.0 cm. Three are approximately four different lymph nodes ranging from 1.2 cm to the largest measuring 3.0 cm. The lymph nodes are bivalved, touch preparation is made labeled as TPA1. A small portion of each of these lymph nodes is placed in RPMI and sent to [facility] for flow cytometric analysis. The lymph nodes are entirely submitted in A1 to A6. . (IUV:pit 01/15/2018) . Touch preparation performed at [facility], [address] [place] [address] , [place] [address]. /QTP . 02 Pathologist provided ICD-10: R59.0, D72.822, I88.9 . 02 CPT . 014680, U51658, L30992, L22465, C38521 Specimen Comment: A courtesy copy of this report has been sent to Specimen Comment: [phone]. Specimen Comment: Report sent to Performed at: [address] [facility] [id number] MD Tung Hare MD Phone: [phone] Performed at: [address] [id number] MD Kaylene Dillard MD Phone: [phone]
[~2018-01-15 05:32] MED LIST changes: +COZAAR 25 MG TA25 M2 PO; +MUCINEX600 MG PO; +NORVASC5 MG PO
[2018-01-15 13:53] LABS: HEMATOCRIT 24.3 % (37.0-47.0); MCH 27.1 pg (26.0-34.0); MCHC 32.9 g/dL (28.0-37.0); MCV 82.5 fL (80.0-100.0); RBC 2.94 mil/uL (4.20-5.00); RDW 19.3 % (10.5-14.5); WBC 5.7 thou/uL (4.0-11.0)
[2018-01-15 14:00] VITALS: BP 153/76
[2018-01-15 14:09] LABS: CALCIUM 8.9 mg/dL (8.5-10.1); CREATININE 5.4 mg/dL (0.6-1.0); POTASSIUM 3.5 mmol/L (3.5-5.1)
[2018-01-15 14:15] LABS: ALBUMIN 2.5 g/dL (3.4-5.0); TOTAL BILIRUBIN 0.6 mg/dL (<0.1-1.0); TOTAL PROTEIN 9.5 g/dL (6.4-8.2)
[2018-01-15] MEDS ORDERED: NORCO 5-325 TA1 EACH PO (14:57)
[2018-01-15 15:12] VITALS: BP 153/76
== END 2018-01-15 16:00 | disposition home or self-care (01) ==
LOC: OR 05:32 → TBA 05:32 → OR 13:15
PROVIDERS: Surgery
DX: I88.9 Nonspecific lymphadenitis, unspecified (principal); D72.822 Plasmacytosis; I12.0 Hypertensive chronic kidney disease with stage 5 chronic kidney disease or end stage renal disease; N18.6 End stage renal disease; D64.9 Anemia, unspecified; Z94.0 Kidney transplant status; Z99.2 Dependence on renal dialysis; Z98.890 Other specified postprocedural states; Z79.899 Other long term (current) drug therapy
CPT/HCPCS: 50010; 50101; 50386; 52190; 54118; 56524; 56526; 57092; 62110; 62900; 70005

== ENCOUNTER 2018-01-16 13:42 | Emergency (ER) | payer OTHER ==
[~2018-01-16] VITALS: Ht 167.6 cm; Wt 58.1 kg
[2018-01-16 15:15] VITALS: BP 144/90
== END 2018-01-16 15:19 | disposition home or self-care (01) ==
LOC: ER 13:42
DX: Z48.01 Encounter for change or removal of surgical wound dressing (principal); M06.9 Rheumatoid arthritis, unspecified; M32.9 Systemic lupus erythematosus, unspecified; I10 Essential (primary) hypertension; Z94.0 Kidney transplant status; Z86.2 Personal history of diseases of the blood and blood-forming organs and certain disorders involving the immune mechanism; Z88.1 Allergy status to other antibiotic agents

== ENCOUNTER → 2018-07-22 | Outpatient (CLI) | payer OTHER ==
[2018-07-22 09:55] LABS: CREATININE 9.9 mg/dL (0.6-1.0)
== END ==
LOC: CAT 09:01
PROVIDERS: Specialist
DX: I13.11 Hypertensive heart and chronic kidney disease without heart failure, with stage 5 chronic kidney disease, or end stage renal disease (principal); N18.6 End stage renal disease; K11.1 Hypertrophy of salivary gland; R59.1 Generalized enlarged lymph nodes; M35.1 Other overlap syndromes; Z94.0 Kidney transplant status

== ENCOUNTER 2018-08-12 19:50 | Emergency (ER) | payer OTHER ==
[~2018-08-12] VITALS: Ht 167.6 cm; Wt 57.6 kg
[2018-08-12 22:59] LABS: PLATELET COUNT 168 thou/uL (150-400); RBC 3.75 mil/uL (4.20-5.00)
[2018-08-12 23:01] LABS: HEMATOCRIT 31.1 % (37.0-47.0); HEMOGLOBIN 10.3 gm/dL (12.0-15.0); MCH 27.3 pg (26.0-34.0); MCHC 32.9 g/dL (28.0-37.0); MCV 82.9 fL (80.0-100.0); RDW 21.1 % (10.5-14.5); WBC 2.8 thou/uL (4.0-11.0)
[2018-08-12 23:04] LABS: ANION GAP 12 mmol/L (7-16); BUN 55 mg/dL (7-18); CALCIUM 8.1 mg/dL (8.5-10.1); CHLORIDE 91 mmol/L (98-107); CO2 24 mmol/L (21-32); CREATININE 12.5 mg/dL (0.6-1.0); GLUCOSE 100 mg/dL (74-106); POTASSIUM 4.7 mmol/L (3.5-5.1); SODIUM 127 mmol/L (136-145)
[2018-08-12 23:13] LABS: TROPONIN-I <0.06 ng/mL (<0.06)
[2018-08-12 23:29] LABS: ABSOLUTE NEUTROPHILS 1.5 thou/uL (1.4-8.2)
[2018-08-12 23:30] LABS: ANISOCYTOSIS 2+; PLATELET ESTIMATE NORMAL; POIKILOCYTOSIS 2+; POLYCHROMASIA 1+
[2018-08-13] MEDS ORDERED: PROTONIX40 M1 PO (01:44)
[2018-08-13 01:45] VITALS: BP 141/91
--- NOTE | 2018-08-14 07:43 | EKG ---
[place] [address] [facility] [place] [address] ELECTROCARDIOGRAM REPORT Name: KOURTNEY VANCE Room #: DEP Sweetie#: [id number] ������������������ Admission: 08/12/18 ������������������ Attend Phys: Discharge: 08/13/18 ������������������ Date of : 75 Report #: [id number] ����������������������������������������������������������������� [id number] THIS REPORT FOR: //name// [facility] ED Test Date: 2018-08-12 Test Time: 22:33:54 Pat Name: KOURTNEY VANCE Department: Room: Gender: F Human Resources Operations Coordinator: Vandana Jaramillo : 1975 Requested By: Brock Mejia Order Number: [id number] MD: Rg Swan Measurements Intervals [place] Rate: 82 P: 42 MI: 196 QRS: 59 QRSD: 88 T: 101 QT: 421 QTc: 492 Interpretive Statements Sinus rhythm Poor R wave progression Borderline prolonged QT interval Compared to ECG 10/19/2017 14:11:13 No significant change was found Electronically Signed On 08-14-2018 7:42:51 CDT by Rg Swan [email or web address] ��������������������������������������������� <ELECTRONICALLY SIGNED> ���������������������������������������� By: Rg Swan MD, [facility] ��������������������������������������������� 08/14/18 0742 D: 06/2232 32 Rg Swan MD, FACC /EPI
== END 2018-08-13 01:54 | disposition home or self-care (01) ==
LOC: ER 19:50
PROVIDERS: Emergency Medicine
DX: R53.1 Weakness (principal); I10 Essential (primary) hypertension; M06.9 Rheumatoid arthritis, unspecified; M32.9 Systemic lupus erythematosus, unspecified; Z88.1 Allergy status to other antibiotic agents; Z86.2 Personal history of diseases of the blood and blood-forming organs and certain disorders involving the immune mechanism

== ENCOUNTER 2018-08-28 17:16 | Inpatient (IN) | payer OTHER ==
[~2018-08-28] VITALS: Ht 167.6 cm; Wt 58.1 kg
--- NOTE | ~2018-08-28 | O ---
[facility] [place] [address] OPERATIVE REPORT Name: KOURTNEY VANCE Room #: 455-P ADM IN M.R.#: [id number] Admission: 08/28/18 ������������������ Attend Phys: Wyatt Devine Discharge: ������������������ Date of : 75 Report #: [id number] THIS REPORT FOR: //name// CC: Cory Ornelas PREOPERATIVE DIAGNOSES: Right axillary adenopathy with renal failure, lupus, weakness and febrile illness. POSTOPERATIVE DIAGNOSES: Right axillary adenopathy with renal failure, lupus, weakness and febrile illness. PROCEDURE PERFORMED: Right axillary node biopsy. ANESTHESIA: IV sedation, local 0.25% Marcaine. FINDINGS: There are some moderately enlarged lymph nodes. Part of the largest sized lymph node was put in RPMI solution for flow cytometry. One of the lymph nodes was cut in half for culture. The rest of the node was sent in formalin. There were approximately 5 lymph nodes harvested. DESCRIPTION OF PROCEDURE: With the patient under IV sedation, the axilla was prepped and draped in a sterile fashion. A 0.25% Marcaine was used to anesthetize the skin and about a 2.5 cm incision was made over the right axilla. After incising through the skin and axillary envelope, the axillary node content was found. This was easily pulled into the incision and then the nodes were identified by cautery of the fatty tissue. The nodes were then removed. There was a chain of lymph nodes that came out pretty easily. The lymph nodes are moderately enlarged, about a centimeter and a half in size. These nodes were freed without difficulty. Total of about 5 lymph nodes were removed. Specimen was sent for proper handling as described above. Medium clips were placed for the dissection of the lymph node. The axillary envelope was closed with 4-0 PDS in running fashion. Skin was closed with 5-0 PDS in running fashion. Skin was closed with Steri-Strip, 4 x 4s, OpSite used for dressing. ��������������������������������������������� ���������������������������������������� By: ��������������������������������������������� [id number] 2203 Samir Hung MD /nt
[2018-08-28 17:33] VITALS: BP 127/90
[2018-08-28 17:48] LABS: HEMATOCRIT 34.3 % (37.0-47.0); MCH 27.1 pg (26.0-34.0); MCHC 32.1 g/dL (28.0-37.0); MCV 84.3 fL (80.0-100.0); PLATELET COUNT 125 thou/uL (150-400); RBC 4.06 mil/uL (4.20-5.00); RDW 20.4 % (10.5-14.5); WBC 2.1 thou/uL (4.0-11.0)
[2018-08-28 17:52] LABS: CALCIUM 8.1 mg/dL (8.5-10.1); CREATININE 9.4 mg/dL (0.6-1.0); POTASSIUM 4.3 mmol/L (3.5-5.1)
[2018-08-28 18:02] LABS: ALBUMIN 2.6 g/dL (3.4-5.0); TOTAL BILIRUBIN 0.7 mg/dL (<0.1-1.0); TROPONIN-I 0.14 ng/mL (<0.06)
[2018-08-28] MEDS ORDERED: ZYRTEC10 M5 PO (18:04)
[2018-08-28] MEDS ORDERED: FLONASE 0.05%50 MCG NASAL (18:04)
[2018-08-28] MEDS ORDERED: ZESTRIL40 MG PO (18:04)
[2018-08-28] MEDS ORDERED: TUMS PO (18:05)
[2018-08-28 18:28] LABS: ABSOLUTE NEUTROPHILS 0.6 thou/uL (1.4-8.2); ANISOCYTOSIS 1+; ATYPICAL LYMPHS 2 %
[2018-08-28 19:58] VITALS: BP 141/99
--- NOTE | 2018-08-28 20:21 | NUR ---
RECEIVED REPORT FROM JOSE DOMINGUEZ IN ED.
[2018-08-28 20:24] VITALS: BP 126/87
[2018-08-28 20:55] VITALS: BP 142/104
--- NOTE | 2018-08-28 20:57 | NUR ---
PT ARRIVED TO THE UNIT VIA CART, AMBULATED FROM BED TO BATHROOM THEN TO BED WITH STANDBY ASSIST, A LITTLE HYPERTENSIVE, T=99.9, BP= 142/104. GIVEN ROOM ORIENTATION, FALL CONTRACT SIGNED, UNDERSTOOD USE OF CALL LIGHT AND CALLING OUT FOR ASSISTANCE, AWARE BED ALARM IS ON, MOTHER FOLLOWED SHORTLY, MONITORED.
[2018-08-29 04:27] VITALS: BP 146/105
--- NOTE | 2018-08-29 04:35 | NUR ---
T=102.8, 103 WHEN RECHECKED, PAGED DR RICHTER VIA ANSWERING SERVICE.
--- NOTE | 2018-08-29 04:42 | NUR ---
PAGED DR RICHTER REGARDING T OF 103, ORAL, ORDER FOR ES TYLENOL 1000 MG X1 AND THEY WILL BE HERE SHORTLY, SUGGESTED LABS BUT SAID LABS LAST NOC WILL SUFFICE, CONTINUE TO ENC. PATIENT TO INCREASE ORAL INTAKE, WILL COOL THE ROOM, WILL MONITOR.
--- NOTE | 2018-08-29 06:38 | NUR ---
DR THAKUR CALLED BACK REGARDING THE CONSULT, WILL SEE PT SHORTLY.
[2018-08-29 07:06] VITALS: BP 135/95
--- NOTE | 2018-08-29 07:39 | EKG ---
[address] [place] [address] ELECTROCARDIOGRAM REPORT Name: KOURTNEY VANCE Room #: 350-P ADM IN M.R.#: [id number] ������������������ Admission: 08/28/18 ������������������ Attend Phys: Wyatt Devine Discharge: ������������������ Date of : 75 Report #: [id number] ����������������������������������������������������������������� [id number] THIS REPORT FOR: //name// [facility] ED Test Date: 2018-08-28 Test Time: 17:42:56 Pat Name: KOURTNEY VANCE Department: Room: 350 Gender: F Family Support Worker: SHITAL : 1975 Requested By: Amee Delgado Order Number: [id number] MD: Rg Swan Measurements Intervals [place] Rate: 85 P: 48 CT: 192 QRS: 104 QRSD: 110 T: 100 QT: 410 QTc: 488 Interpretive Statements Sinus rhythm Probable left atrial enlargement Right axis deviation Low voltage, extremity leads Nonspecific T abnormalities, lateral leads Borderline prolonged QT interval Compared to ECG 08/12/2018 22:33:54 Right-axis deviation now present Electronically Signed On 08-29-2018 7:39:29 CDT by Rg Swan [email or web address] ��������������������������������������������� <ELECTRONICALLY SIGNED> ���������������������������������������� By: Rg Swan MD, [facility] ��������������������������������������������� 08/29/18 0739 1742 1742 Rg Swan MD, [facility] /EPI
--- NOTE | 2018-08-29 15:28 | NUR ---
INITIAL ASSESSMENT: SW reviewed chart and spoke with nursing. Pt was admitted from home due to hyponatremia/weakness. Pt with hx of ESRD and goes to [facility] for outpatient dialysis. Pt had kidney transplant in 2010 and has since had to go on dialysis due to failed transplant. Hem/Onc consulted. Pt to have lymph node and bone marrow bx. SW met with pt at bedside. Introduced role of SW. Pt is alert/orientated x 4. Pt reports she lives at home with her family. Prior to admission, pt was independent with ADLs. No use of DME or hx of HH or SNF/Rehab placement. Pt goes to [facility] at 0545. Pt drives herself of family provides transportation Pt's PCP is Dr. Conor Ornelas. Plan is for pt to return home when medically stable. SW is following to assist as needed with discharge planning.
[2018-08-29 15:57] VITALS: BP 136/95
--- NOTE | 2018-08-29 17:52 | NUR ---
Assumed care at 0700 this AM. Patient in dialysis this morning-2.5L off per dialysis nurse. Patient running a fever again this afternoon-tylenol administered. IV zofran given for nausea. Patient stated she hasn't felt good and is shaky. Patient also nervous for biopsies to be done tomorrow. Reassurance and support given. Not much progress toward plan of care at this time.
[2018-08-29 19:40] VITALS: BP 103/74
[2018-08-29 23:37] VITALS: BP 127/89
[2018-08-30 03:58] VITALS: BP 139/93
[2018-08-30 04:37] LABS: HEMATOCRIT 30.1 % (37.0-47.0); HEMOGLOBIN 9.8 gm/dL (12.0-15.0); MCH 27.1 pg (26.0-34.0); MCHC 32.5 g/dL (28.0-37.0); MCV 83.3 fL (80.0-100.0); PLATELET COUNT 110 thou/uL (150-400); RBC 3.62 mil/uL (4.20-5.00); RDW 20.1 % (10.5-14.5)
[2018-08-30 04:49] LABS: ALBUMIN 2.2 g/dL (3.4-5.0); CALCIUM 7.8 mg/dL (8.5-10.1); POTASSIUM 3.9 mmol/L (3.5-5.1); TOTAL BILIRUBIN 0.4 mg/dL (<0.1-1.0); TOTAL PROTEIN 9.1 g/dL (6.4-8.2)
[2018-08-30 04:52] LABS: CREATININE 6.8 mg/dL (0.6-1.0)
--- NOTE | 2018-08-30 06:15 | NUR ---
PT MAKING SLOW PROGRESS TOWARDS GOALS. TREATED WITH TYLENOL ONCE OVERNIGHT FOR FEVER 102.5 ORALLY. DOES REPORT THAT SHE FEELS EXHAUSTED AND WEAK. ENCOURAGED TO USE BEDSHEET OVER BLANKETS.
[2018-08-30 06:41] LABS: ABSOLUTE NEUTROPHILS 0.8 thou/uL (1.4-8.2); ANISOCYTOSIS 2+; PLATELET ESTIMATE DECREASED; POIKILOCYTOSIS 1+
[2018-08-30 06:42] LABS: POLYCHROMASIA 1+
--- NOTE | 2018-08-30 07:13 | HC ---
[facility] [place] [address] CONSULTATION Name: KOURTNEY VANCE Room #: 350-P ADM IN M.R.#: [id number] Admission: 08/28/18 ������������������ Attend Phys: Wyatt Devine Discharge: ������������������ Date of : 75 Report #: [id number] THIS REPORT FOR: //name// CC: Trent Freitas MD REASON FOR CONSULTATION: Persistent lymphadenopathy. HISTORY OF PRESENT ILLNESS: The patient is a very pleasant 43-year-old female who has a history of lymphadenopathy for at least 6 months. This was recently rescanned and found to be stable over the last 4-5 months. She was receiving dialysis yesterday and had a fever, was admitted for probable line infection, though unclear etiology. The patient has been having persistent nausea for about 2 months now. I have seen her earlier this week about the lymphadenopathy. She previously had a lymph node biopsied back in December that showed reactive changes. There was not any granulomas metastatic carcinoma or definite Warren-Ruthie cells at that time. Also, flow cytometry did not show any specific clonal disorder. She has had continued weight loss. She has low-grade fevers, with that a high fever yesterday. She says the nausea, which she describes more in the pit of her stomach of the belly button or umbilicus is not burping or belching, just of a discomfort, not really changed by eating, drinking or defecation or urination. PAST MEDICAL HISTORY: Notable for the history of the lymphadenopathy. Also, history of rheumatoid arthritis; scleroderma; lupus; end-stage renal disease, on dialysis, status post kidney transplant that failed and rejected, also anemia; and also skin rash. Acid reflux, past history of cellulitis, also hyperglycemia. SOCIAL HISTORY: Not currently working. FAMILY HISTORY: No one recently diagnosed with cancer. Tobacco: Never smoked. Alcohol: None. MEDICATIONS: At this time in the hospital currently include fluticasone 2 sprays daily, lisinopril 40 at bedtime, doxazosin 8 mg at bedtime, Zofran p.r.n., 1 time dose of micafungin, 1 time dose of daptomycin, 1 time dose of meropenem. The patient has also had received metoclopramide. LABORATORY DATA: This admit are notable for sodium of 127, potassium 4.3, BUN of 42, creatinine 9.4, AST 55, calcium 8.1, ALT 17, total protein 10, albumin 2.6. Iron panels in 12/2017 were fairly normal. Coags have been normal in the [address] [place] [address] CONSULTATION Name: KOURTNEY VANCE Room #: 350-P ADM IN M.R.#: [id number] Admission: 08/28/18 ������������������ Attend Phys: Wyatt Devine Discharge: ������������������ Date of : 75 Report #: [id number] past. Recent white count 2.1 though earlier in July, it had been 2.8, she normally runs in the 4-6 range. Hemoglobin 11; MCV 84.3; platelets 125, in the past she usually runs in the 200 range or 168 range. Differential has a few extra lymphocytes. ANC is a little bit low at 600. Her TSH back in December had been normal. She has had multiple tests for hepatitis and influenza and RSV in the past and HIV years ago. Of particular, I can think we have checked serum protein electrophoresis in the past, but if not, we may check that given the high total protein. PHYSICAL EXAMINATION: VITAL SIGNS: The patient appears her stated age, temperature last night to 102.8. Height is 5 feet 6 inches, 167.6 cm, weight 126 pounds which is 57.2 kilograms. Blood pressure 135/95, respirations 19, pulse 88. MOOD: She is alert and pleasant. NEUROLOGIC: She is moving all extremities. Speech and thought pattern normal. LUNGS: Mostly clear without any rhonchi, rales or wheezes. HEART: Regular rate. LYMPH: The patient does have slightly enlarged lymph on both groins and also the right axilla. ABDOMEN: No hepatosplenomegaly. No masses. EXTREMITIES: Without clubbing, cyanosis or edema. ASSESSMENT AND PLAN: 1. Persistent lymphadenopathy. I had talked with Dr. Ornelas and also the patient. We will arrange for lymph node biopsy by ultrasound, particularly would prefer the right axilla. We will also arrange for bone marrow biopsy. 2. Fever, most likely line infection, on multiple anti-infectives. Cultures pending. 3. Cytopenias, likely reactive but also bone marrow, we will check, can also be related to rheumatoid arthritis/lupus. 4. History of rheumatoid arthritis. Per others. 5. Scleroderma. Per others. 6. End-stage renal disease, dialysis. Per others. 7. Hypertension, doxazosin and lisinopril. We will follow with you. ��������������������������������������������� <ELECTRONICALLY SIGNED> ���������������������������������������� By: Nelson Chen MD ��������������������������������������������� 08/30/18 0713 0900 1010 Nelson Chen MD /nt
[2018-08-30 07:31] VITALS: BP 151/91
--- NOTE | 2018-08-30 10:28 | H ---
[facility] [place] [address] HISTORY AND PHYSICAL Name: KOURTNEY VANCE Room #: 350-P ADM IN M.R.#: [id number] Admission: 08/28/18 ������������������ Attend Phys: Wyatt Devine Discharge: ������������������ Date of : 75 Report #: [id number] THIS REPORT FOR: //name// CC: Cory Ornelas DATE OF SERVICE: 08/28/2018 CHIEF COMPLAINT: Fever and weakness. HISTORY OF PRESENT ILLNESS: The patient is a 43-year-old female who presented to the Emergency Room with increasing nausea and weakness, but also an episode of fever. In recent days, there was concern of fever during her hemodialysis session recently. She has also had some swollen lymph nodes and glands for several months and some weight loss with anorexia. She is admitted for evaluation of fever to rule out infection, but also to evaluate for any potential myeloproliferative disorder related to her lymphadenopathy. PAST MEDICAL HISTORY: Rheumatoid arthritis, scleroderma, lupus, renal failure with a failed renal transplant in 2010 and now back on hemodialysis; anemia of chronic disease, hypertension. PAST SURGICAL HISTORY: As above. FAMILY HISTORY: Noncontributory. SOCIAL HISTORY: She lives at home. No chronic alcohol or tobacco use. ALLERGIES: VANCOMYCIN. MEDICATIONS: Lisinopril, Zyrtec, Flonase, calcium, Cardura, amlodipine, Coreg. REVIEW OF SYSTEMS: Denies headache, chest pain, shortness of breath, abdominal pain, nausea, vomiting, diarrhea, constipation, dysuria, syncope. OBJECTIVE: VITAL SIGNS: Temperature 37.1, pulse 88, respirations 19, blood pressure 135/95, O2 sat 100% on room air. GENERAL: She is awake and alert, in no distress. LUNGS: Clear. HEART: Regular. ABDOMEN: Soft, normoactive bowel sounds. EXTREMITIES: No edema, some palpable lymph nodes in the axilla and the groin. NEUROLOGIC: Cranial nerves intact. Speech is fluent. Motor strength 4/5. LABORATORY DATA REVIEW: Platelet count 125, hemoglobin 11, white count 2.1, albumin 2.6, creatinine 9.4. [facility] [address] [place] [address] HISTORY AND PHYSICAL Name: KOURTNEY VANCE Room #: 350-P [facility] IN M.R.#: [id number] Admission: 08/28/18 ������������������ Attend Phys: Wyatt Devine Discharge: ������������������ Date of : 75 Report #: [id number] ASSESSMENT: 1. Febrile illness. 2. Lymphadenopathy. 3. End-stage renal disease, on hemodialysis. 4. Pancytopenia. 5. Anemia of chronic renal disease. 6. Moderate protein-calorie malnutrition with albumin 2.6. PLAN: Infectious workup to begin with empiric antibiotics, pending ID assessment. I have spoken with Dr. Chen and note the plans for lymph node biopsy and bone marrow transplant. The renal service is managing dialysis and those notes are reviewed. ��������������������������������������������� <ELECTRONICALLY SIGNED> ���������������������������������������� By: Berry Sal MD ��������������������������������������������� 08/30/18 1028 0952 [id number] eBrry Sal MD /logan
--- NOTE | 2018-08-30 14:06 | NUR ---
SW reviewed chart and spoke with nursing. Pt to have abdominal US and lymph node bx today. NO weekend discharge planned. RACHEL is following to assist as needed with discharge planning.
--- NOTE | 2018-08-30 14:33 | HC ---
[facility] [place] [address] CONSULTATION Name: KOURTNEY VANCE Room #: 350-P ADM IN M.R.#: [id number] Admission: 08/28/18 ������������������ Attend Phys: Wyatt Devine Discharge: ������������������ Date of : 75 Report #: [id number] THIS REPORT FOR: //name// CC: Cory Ornelas DATE OF SERVICE: 08/29/2018 INFECTIOUS DISEASE CONSULTATION REASON FOR CONSULTATION: I was asked to evaluate concerning fever. HISTORY OF PRESENT ILLNESS: The patient is a 43-year-old with history of systemic lupus erythematosus and scleroderma with underlying hypertension, end-stage renal disease. She has been on hemodialysis for an extended period of time. She underwent renal transplantation in 2010 and subsequently developed rejection. She has been off immunosuppression now for the last month or 6 weeks. Over the last 6 months, she has had progressive lymphadenopathy, intermittent low-grade fever. Initially had biopsy, which was nondiagnostic. She is showing reactive lymphadenopathy. This was done in the right groin. She was seen in the outpatient clinic at the end of June where imaging studies including CT scan showed extensive diffuse adenopathy. I repeated her imaging studies and had difficulty getting comparisons done. These have been compared and remained stable over the last several months. She reports no new rashes. No arthritis symptoms. No headaches. She has had progressive fatigue, anorexia, some weight loss. No chest pain, palpitations, cough, or sputum production. No abdominal pain or diarrhea. Yesterday, presented to the outpatient clinic with worsening weakness. She reports increased nausea, one episode of emesis, mild photophobia, and subsequently was identified as having fever and hypotension with tachycardia. Temperature got up to 103 degrees today. She has had occasional chill, sweats. She has had no travel. She is . No HIV risk factors. She was screened several weeks ago for tuberculosis and histoplasma. These studies were negative. REVIEW OF SYSTEMS: Ten-point review is negative other than what has been described above. PAST MEDICAL HISTORY: Lymphadenopathy, rheumatoid arthritis, scleroderma, lupus, end-stage renal disease, failed renal transplant, anemia, rash, and gastroesophageal reflux. FAMILY HISTORY: Noncontributory. SOCIAL HISTORY: Nonsmoker. No alcohol intake. ALLERGIES: VANCOMYCIN with rash. [facility] [address] [place] [address] CONSULTATION Name: KOURTNEY VANCE Room #: 350-P ADM IN M.R.#: [id number] Admission: 08/28/18 ������������������ Attend Phys: Wyatt Devine Discharge: ������������������ Date of : 75 Report #: [id number] MEDICATIONS: As noted on her MAR, which are reviewed. PHYSICAL EXAMINATION: VITAL SIGNS: Temperature 103 degrees, pulse 90, blood pressure 103/74, respiratory rate 20, and oxygen saturation 100% on room air. SKIN: With faint malar rash. Multiple excoriations to her back. Diffuse adenopathy palpable in the neck, axillary region, and groin. Thin stature. EYES: Without scleral icterus. MOUTH: Without mucositis. NECK: Supple, with no thyromegaly or mass. LUNGS: Clear. Left chest tunneled dialysis catheter was nontender with no exudate. HEART: Regular, without murmur, gallop, or rub. ABDOMEN: Soft, nontender, no hepatosplenomegaly or mass. 1. Right lower quadrant, renal transplant was palpable without tenderness. GENITORECTAL: Not performed. EXTREMITIES: With no clubbing, cyanosis, or edema. NEUROLOGIC: Cranial nerves intact. Strength in upper and lower extremities was normal. Mood normal. Mentation normal. LABORATORY STUDIES: Hemoglobin 11, WBC 2.1 with 30% segs, 56% lymphs, 12% monos, 2% atypical lymphs, and platelet count 125,000. Sodium 127, potassium 4.3, bicarbonate 27, and creatinine 9. Liver function test normal. Protein of 10. Blood cultures negative to date. IMPRESSION: The patient with end-stage renal disease, prior renal transplant, now with rejection, off immunosuppression, with progressive lymphadenopathy associated with fever and pancytopenia. Underlying lupus, scleroderma, and hypertension. Source of her fever is still indeterminate. Would consider bacterial infection from central venous access of a left chest dialysis catheter versus intra-abdominal source, less likely urinary tract source. Fungus and AFB are still considered, although outpatient workup so far was negative. HIV studies are negative. Autoimmune or connective tissue disorder also considered related to her lupus. Kidney rejection, although she is having no pain in the graft. Malignancy such as lymphoma with B symptoms and cytopenias. RECOMMENDATION: We will continue IV antibiotic therapy for nosocomial organisms. Tissue biopsy of lymph node and bone marrow. Await cultures and viral studies. Continue full support. I have discussed with Oncology service today as well as nursing at her bedside. Also discussed with attending last evening. ��������������������������������������������� <ELECTRONICALLY SIGNED> ���������������������������������������� By: Jefry Ornelas MD ��������������������������������������������� 08/30/18 1433 [id number] 0350 Jefry Ornelas MD /nt
[2018-08-30 15:00] VITALS: BP 146/95
--- NOTE | 2018-08-30 16:51 | NUR ---
ASSUMED CARE OF PT AT 0700. PT AOX4 COMPLAINS OF WEAKNESS AND NAUSEA. TMAX 102.5 - ALLEVIATED WITH TYLENOL. BIOPSY FOR AXI LYMPH NODE/BONE MARROW PENDING. NO PHYSICIAN ABLE TO PERFORM TODAY. ABD US RESULTS PENDING. UP W/ SBA. SLOW PROGRESS TOWARD POC GOALS. WILL CONT TO MONITOR.
[2018-08-30 20:45] VITALS: BP 118/85
[2018-08-31 04:56] VITALS: BP 147/103
[2018-08-31 06:33] LABS: HEMATOCRIT 30.3 % (37.0-47.0); HEMOGLOBIN 9.8 gm/dL (12.0-15.0); MCH 26.9 pg (26.0-34.0); MCHC 32.3 g/dL (28.0-37.0); MCV 83.2 fL (80.0-100.0); PLATELET COUNT 118 thou/uL (150-400); RBC 3.64 mil/uL (4.20-5.00); WBC 2.4 thou/uL (4.0-11.0)
[2018-08-31 07:10] VITALS: BP 123/72
--- NOTE | 2018-08-31 07:21 | NUR ---
PT MAKING POOR PROGRESS TOWARDS GOALS. THIS AM PT HAD FEVER OF 39.2 ORAL. TYLENOL GIVEN WITH SUBSEQUENT ORAL TEMP DOWN TO 37.7. ALSO C/O NAUSEA THIS MORNING, ZOFRAN GIVEN. CONTINUES TO COMPLAIN OF EXHAUSTION. ASSISTED WITH BATH WHILE SITTING AT THE SINK THIS AM.
[2018-08-31 07:39] LABS: ABSOLUTE NEUTROPHILS 1.7 thou/uL (1.4-8.2); ANISOCYTOSIS 1+; ATYPICAL LYMPHS 1 %
[2018-08-31 09:07] LABS: COMPLEMENT-C3 32 mg/dL (82-167); COMPLEMENT-C4 9 mg/dL (14-44)
--- NOTE | 2018-08-31 14:33 | NUR ---
ASSUMED CARE OF PT AT 0700. PT AOX4 IN NO ACUTE DISTRESS. C/O WEAKNESS BUT APPEARS IMPROVED TODAY. SHOWERED TODAY. STOOL SAMPLE SUBMITTED TO LAB. PROTECTIVE PROTECTION REMOVED DUE TO ANC >1. BEING DIALYZED AT BEDSIDE CURRENTLY. NO OTHER REMARKABLE CHANGES TO REPORT. BIOPSY AND EGD SCHEDULED FOR EARLY NEXT WEEK. FEVERS APPEAR TO BE IMPROVING. SLOW PROGRESS TOWARD POC GOALS.
[2018-08-31 16:35] VITALS: BP 146/99
[2018-08-31 19:48] VITALS: BP 140/81
--- NOTE | 2018-08-31 21:38 | NUR ---
PT INITIAL ORAL TEMP 102.8 ORALLY. MULTIPLE BLANKETS REMOVED FROM PT. TREATED WITH DOSE TYELENOL. TEMP NOW 102.3, NO BLANKETS PRESENT ON PT. DID STATE SHE IS HAVING SOME BACK DISCOMFORT AND WOULD LIKE SOME PAIN MEDICATION. DENIES RELIEF OF THE TYLENOL ALREADY GIVEN. SPOKE WITH DR. MOREJON, NO ORDERS RECEIVED.
[2018-09-01 05:14] VITALS: BP 123/84
--- NOTE | 2018-09-01 05:32 | NUR ---
PT MAKING POOR PROGRESS TOWARDS GOALS. FEVERISH LAST NIGHT WITH ORAL TEMP 102.8 PT AGAIN FOUND TO BE LYING UNDER AT LEAST 3 BLANKETS. ENCOURAGED TO STOP USING SO MANY BLANKETS AND EDUCATED TO THE REASONS WHY. TYLENOL GIVEN. ORAL TEMP AFTER THAT 102.3 THIS AM TEMP 100.6 DID NOT COMPLAIN OF ANY NAUSEA OVERNIGHT.
[2018-09-01 07:28] VITALS: BP 127/84
--- NOTE | 2018-09-01 15:56 | NUR ---
Assumed care at 0700 this AM. Patient on special precautions for CDIFF, PO flagyl administered per orders. Patient given IV zofran this AM for nausea. Patient reported that nausea has since then subsided. Poor nutritional intake still remains... patient encouraged to drink fluids while awake. Consent signed for EGD procedure that is scheduled for tomorrow. Patient still on fall precautions; she has been steady on her feet but remains very weak with fatigue. Slow progress toward plan of care goals at this time.
[2018-09-01 16:22] VITALS: BP 116/66
[2018-09-01 19:45] VITALS: BP 112/70
[2018-09-02 04:00] VITALS: BP 113/76
[2018-09-02 05:45] LABS: APTT 35.1 Seconds (24.5-32.8); INR 1.1; PROTIME 11.4 Seconds (9.3-11.4)
--- NOTE | 2018-09-02 07:33 | NUR ---
Pt. stated she slept fair during the night. Temp of 101 initially at HS then 98.8 when rechecked later. No med given to decrease temp. No nausea or vomiting. Kept NPO since MN for procedure today. Up with assist to bathroom due to generalized weakness. She reported loose bm x1 this shift ,one at HS and again this am. Bed alarm on for safety. Will continue to monitor.
[2018-09-02 08:00] VITALS: BP 116/74
[2018-09-02 12:09] LABS: ANGIOTENSIN CONVERTNG ENZ < 15 U/L (14-82)
--- NOTE | 2018-09-02 12:37 | NUR ---
SW reviewed chart and spoke with nursing. Pt febrile over the weekend. Pt to have EGD and lymph node/bone marrow bx today. Pt is in isolation for c.diff. SW is following to assist as needed with discharge planning.
[2018-09-02 15:47] VITALS: BP 115/74
[2018-09-02 17:10] LABS: EBV DNA log10 PCR 2.928 (())
[2018-09-02 19:26] VITALS: BP 120/79
--- NOTE | 2018-09-02 20:13 | NUR ---
Patient had EGD, lymph node and bone marrow biopsies completed today. Patient gone a lot of the shift at the 3 separate procedures. Patient remains to feel very weak and drowsy. No N/V reported. PT NPO all day for procedures, but recieved a full liquid dinner tray. Patient still up standby with fall precautions in place. [place] not hung on this shift due to lack of IV access and other antiobiotics infusing. bag making machine tender RN notified to hang when second antibiotic is complete.
[2018-09-03 04:23] VITALS: BP 104/80
--- NOTE | 2018-09-03 06:25 | NUR ---
PT IS A/OX4, RUNNING SR ON THE TELE MONITOR. LUNGS ARE CLEAR/DIMINISHED IN ALL LOBES. PT HAD ONE LOOSE STOOL AND CLOGGED THE TOILET. WOUNDS ARE DOCUMENTED. PT COMPLAINS OF PAIN AT BIOPSY SITES. GAVE TYLENOL X1. BONE BIOPSY SITE ON BACK HAD BLOOD SOAKED BAND-AID, WHICH WAS REPLACED. FOLLOWING ISOLATION PRECAUTIONS AND FALL PRECAUTIONS. PT IS SCHEDULED FOR DIALYSIS ON SUNDAY. POC WITH IVPB. HOURLY ROUNDING.
[2018-09-03 15:15] VITALS: BP 105/69
--- NOTE | 2018-09-03 16:06 | PATH ---
[facility] [place] [address] [address] PATHOLOGY RPT PROCEDURE Name: KOURTNEY VANCE Room #: 350-P ADM IN M.R.#: [id number] ������������������ Admission: 08/28/18 ������������������ Date of : 75 Discharge: Report #: [id number] Path Case #: [id number] L[facility] Accession Number: [id number] . 01 Material submitted: . PART A: stomach - BX GASTRITIS R/O H PYLORI PART B: cardia - BX GASTRIC CARDIA THICKENED MUCOSA VS POLYP . 01 Clinical history: . Pre-OP DX: Nausea, dysphagia Post-OP DX: Gastritis, hiatal hernia, esophagitis, thickened mucosa cardia . 02 Diagnosis: A. Gastric mucosa, gastritis rule out H. pylori, endoscopic biopsy: - Mild reactive gastropathy. - Negative for intestinal metaplasia or atrophy. - Negative for Helicobacter pylori (properly controlled immunohistochemical stain performed). . B. Gastric mucosa, gastric cardia thickened mucosa versus polyp, endoscopic biopsy: - Polypoid mucosa with hyperplastic changes and moderate chronic inflammation as well as features of mild reactive gastropathy. - Negative for intestinal metaplasia or atrophy. - Negative for Helicobacter pylori (properly controlled immunohistochemical stain performed). (IUV/db; 09/03/2018) LBQ/09/03/2018 . 02 Electronically signed: . Nallely Georges MD, Pathologist NPI- [id number] . 01 Gross description: . A. Received in formalin labeled "Kourtney Vance, BLAYNE gastritis, rule out H. pylori," are 5 segments of mcghee soft tissue measuring 1.7 x 1.1 x 0.2 cm in aggregate dimensions and ranging from 0.1 to 0.6 cm in maximum dimension. The specimen is submitted entirely in cassette A1. . B. Received in formalin labeled "Kourtney Vance, BX gastric cardia, thickened mucosa versus polyp," are 5 segments of mcghee soft tissue measuring 1.2 x 1.0 x 0.2 cm in aggregate dimensions and ranging from 0.2 to 0.5 cm in maximum dimension. The specimen is submitted entirely in cassette B1. (TSD; 09/02/2018) TOB/TOB . [address] [place] [address] PATHOLOGY RPT PROCEDURE Name: KOURTNEY VANCE Room #: 350-P ADM IN M.R.#: [id number] ������������������ Admission: 08/28/18 ������������������ Date of : 75 Discharge: Report #: [id number] Path Case #: [id number] Pathologist provided ICD-10: K31.9, K29.50 . 02 CPT . 016065, 828695, [id number] Specimen Comment: A courtesy copy of this report has been sent to Specimen Comment: [phone]. Specimen Comment: Report sent to Performed at: [address] [facility], [place], [place] [id number] MD Tung Hare MD Phone: [phone] Performed at: [address] [facility] [id number] MD Nallely Georges MD Phone: [phone]
--- NOTE | 2018-09-03 16:34 | P ---
[facility] [place] [address] [place] [address] PROCEDURE REPORT Name: KOURTNEY VANCE Room #: 350-P ADM IN M.R.#: [id number] Admission: 08/28/18 ������������������ Attend Phys: Wyatt Devine Discharge: ������������������ Date of : 75 Report #: [id number] THIS REPORT FOR: //name// CC: Cory Ornelas TYPE OF REPORT: Inpatient endoscopy report. BRIEF HISTORY: The patient is a 43-year-old woman with multiple medical problems including lupus, scleroderma, chronic kidney disease with failed transplant on dialysis and also Raynaud's with persistent nausea for 2 months. She has had some anorexia and loss of appetite and may have lost a few pounds. She has only occasional vomiting. PREOPERATIVE DIAGNOSIS: Persistent nausea. POSTOPERATIVE DIAGNOSES: 1. Grade B erosive esophagitis. 2. Hiatus hernia. 3. Diffuse gastritis. 4. Thickened mucosa within hiatus hernia that should be thickened gastric mucosa in the hiatus hernia. 5. Moderate Schatzki ring. MEDICATIONS: Deep sedation with propofol per Anesthesia. SPECIMENS: 1. Biopsies of gastritis. 2. Biopsies of thickened mucosa within the hiatus hernia. ESTIMATED BLOOD LOSS: 3 mL. PROCEDURE: EGD with biopsy and Castillo dilation. FINDINGS: Prior to sedation, procedure of upper endoscopy and dilation was discussed with the patient as well as potential risks and its complications. She indicates she understands and desires to proceed. DESCRIPTION OF PROCEDURE: With the patient in left lateral decubitus position, the Olympus video endoscope was inserted in the cervical esophagus under direct vision without difficulty. Examination of this organ through its entire length revealed normal esophageal mucosa in the proximal esophagus; however, the scope was advanced distally. There were noted to be erosions in the distal esophagus consistent with a grade B esophagitis. No ulcers were seen. At about 40 cm, a modest Schatzki ring was seen and had a smooth and benign appearance. I did not see evidence of Squires mucosa. The scope was advanced into a small hiatus hernia measuring 2-3 cm in greatest length. The mucosa was intact. It was not ulcerated. However, there appeared to be a proximally 1.5 x 1.5 area of [facility] [address] [place] [address] PROCEDURE REPORT Name: KOURTNEY VANCE Room #: 350-P ADM IN M.R.#: [id number] Admission: 08/28/18 ������������������ Attend Phys: Wyatt Devine Discharge: ������������������ Date of : 75 Report #: [id number] thickened mucosa. It was fairly subtle. It was right at the top of the gastric fold. There was typical appearing gastric mucosa. It had smooth and benign appearance. This may just be thickened mucosa. I cannot exclude the possibility of a neoplastic process and multiple biopsies were obtained. Scope was advanced in the stomach, which was examined on end view as well as retroflexed views. There was a pattern of a diffuse gastritis. No ulcers or erosions were seen. Upon retroflexion, no abnormalities other than the hiatus hernia were noted. The pylorus, duodenal bulb and duodenal sweep were all inspected and noted to be unremarkable. At that point, the scope was slowly withdrawn and careful circumferential views confirmed the above findings. The patient tolerated the procedure well. DISPOSITION: The patient with findings as noted. She would benefit from twice daily PPI at least at this point in time due to esophagitis. We will follow up on biopsies. As far as nausea, I do not see any endoscopic evidence or gastroparesis or obstruction. She reports she has not had much benefit from the Zofran. We will try a scopolamine patch, which she may not tolerate in view of her scleroderma. We will follow up on biopsies and make further recommendations, especially with regards to lesion within the hiatus hernia. ��������������������������������������������� <ELECTRONICALLY SIGNED> ���������������������������������������� By: González Das MD ��������������������������������������������� 09/03/18 1634 1459 0308 González Das MD /nt
--- NOTE | 2018-09-03 18:07 | NUR ---
ASSUMED PATIENT CARE AT 0700. A/0 X4. HAD HD IN AM. 2.5 L FLUID MOVED. NO BM ON THIS SHIFT. VSS. SLOWLY TOWARDS POC GOALS.
[2018-09-03 22:35] VITALS: BP 109/74
[2018-09-04 04:06] VITALS: BP 118/81
--- NOTE | 2018-09-04 04:52 | NUR ---
PT MAKING PROGRESS TOWARDS GOALS. NO FEVERS NOTED OVER NIGHT. NO REPORTS OF SWEATS OR CHILLS. CONTINUE TO MONITOR.
[2018-09-04 07:29] VITALS: BP 114/78
--- NOTE | 2018-09-04 13:54 | NUR ---
SW reviewed chart and spoke with nursing and attending physician. Pt's diet is being advanced. PPI continued. Awaiting lymph node and bone marrow bx results. Pt remains in isolation for active c.diff. Plan is for pt to return home and resume outpatient dialysis when medically stable. RACHEL is following to assist as needed with discharge planning.
--- NOTE | 2018-09-04 15:07 | PATH ---
[facility] [place] [address] PATHOLOGY RPT PROCEDURE Name: KOURTNEY VANCE Room #: 350-P ADM IN M.R.#: [id number] ������������������ Admission: 08/28/18 ������������������ Date of : 75 Discharge: Report #: [id number] Path Case #: [id number] LCA Accession Number: [id number] . 01 Material submitted: . lymph node - RIGHT AXILLARY LYMPH BIOPSY. Modifiers: right . 01 Clinical history: . weakness, fatigue . 02 Diagnosis: Tissue designated as "right axillary lymph node", needle core biopsy: - Specimen entirely comprised of fibrovascular connective tissue. - No lymph node or lymphoid tissue present for evaluation. (IUV:cambering machine operator; 09/03/2018) MBR/09/03/2018 . 02 Comment: Portion of this specimen was placed in RPMI at the time of the procedure. This is sent to flow cytometric analysis. An addendum will be issued subsequent to receiving the same. (IUV:cambering machine operator; 09/03/2018) . 02 Addendum: . Special studies report received from [facility], [address] [place] [address], [address], [place], [address], on case [id number], labeled with their number [id number], dated 09/03/2018. . Flow Cytometry: Hematologic Neoplasia Assessment . Clinical History . . Indication for Study Evaluation for hematolymphoid neoplasia . Specimen Lymph Node, Right Axillary . Viability 74% (7AAD exclusion) . Interpretation Lymph Node, Right Axillary: - In the sample analyzed, there is no evidence for a B-cell lymphoma (limited study). . [address] [address] PATHOLOGY RPT PROCEDURE Name: KOURTNEY VANCE Room #: 350-P ADM IN M.R.#: [id number] ������������������ Admission: 08/28/18 ������������������ Date of : 75 Discharge: Report #: [id number] Path Case #: [id number] Comments Hodgkin lymphoma and some large cell lymphomas cannot be categorically excluded by flow cytometric analysis. A limited panel of antibodies was performed due to low cell yield. Correlation with the morphologic findings and other clinical data is recommended. . Populations Analyzed Lymphocytes: 58% A limited panel of antibodies (kappa, lambda, CD3, CD4, CD5, CD8, CD10, CD19, CD20, CD38, CD45, and CD57) was performed due to low cell yield. There is a mixed population of B-lymphocytes (18%) and T-lymphocytes (40%). No B-cell surface light chain restriction is detected. T-cells express CD3 and CD5. Other crum T-cell antigens are not evaluated. The CD4:CD8 ratio is normal at 3.6:1. CD45 Negative 42% No significant reactivity with the markers tested Events/Debris: (may represent degenerated cells, unlysed red blood cells, debris, etc.) . . Morphologic Evaluation A slide was reviewed for quality assurance supervisor purposes only. . Specimen Description Total Cell Yield: 0.15 x 10 and 6 . Reagent(s) Used CD3, CD4, CD5, CD8, CD10, CD19, CD20, CD38, CD45, CD57, kappa, lambda . at [facility] Nate Huang MD Hematopathologist . . Intended Use Flow cytometry is optimally used to immunophenotypically characterize abnormal populations when they are detected. Negative flow cytometry results do not exclude lymphoma or neoplasia. Possible false negative flow cytometry results may occur in, but are not limited to, the following: neoplastic cells in Hodgkin lymphoma are not typically adequately represented by routine clinical flow cytometry; neoplastic cells may be lost or inadequately represented due to degeneration, sample processing, sampling artifact, or patchy involvement; plasma cells are typically underrepresented by flow cytometry; immature cells/blasts may be underrepresented due to hemodilution; myeloproliferative disorders and low grade myelodysplasia may not have immunophenotypic abnormalities or increased blasts. Correlation with all available clinical, laboratory, and [address] [address] PATHOLOGY RPT PROCEDURE Name: KOURTNEY VANCE Room #: 350-P ADM IN M.R.#: [id number] ������������������ Admission: 08/28/18 ������������������ Date of : 75 Discharge: Report #: [id number] Path Case #: [id number] morphologic data is always necessary to assess for the possibility of false negative flow cytometry results and to establish a diagnosis. Each marker in this analysis was used to assess for potential antigenic abnormalities or to evaluate detected abnormalities. . Disclaimer(s) This test was performed at [facility] at [address], [place], [address] - Electronic Equipment Set Up Operator: Shant Rodas MD. [facility] is a business unit of [employer], a wholly-owned subsidiary of [employer]. . Any image or images that accompany this report are sales representative malt liquors images only and should not be used to render a diagnosis. . This test was developed and its performance characteristics determined by [facility]. It has not been cleared or approved by the Food and Drug Administration (FDA). The FDA has determined that such clearance or approval is not necessary. . For inquiries, the physician may contact Lab: [phone] . A complete copy of the report is on file. . Professional services performed by [facility] at [address], [place] [address]. Technical services performed by [facility] at [address], [place] [address]. . (AMJ 09/04/2018) AZJ/09/04/2018 Addendum Electronically Signed by Nallely Georges MD, Pathologist . 02 Electronically signed: . Nallely Georges MD, Pathologist NPI- [id number] . 01 Gross description: . The specimen is received in formalin, labeled "Kourtney Vance Rt axillary lymph BX" and consists of a delicate and small mcghee needle core measuring 0.3 cm in length and 0.1 cm in diameter which is entirely submitted in A1. Also received in RPMI labeled "Marylou, Kourtney, Rt axillary lymph BX" is a small needle core which is forwarded for further studies. (SDY; 09/02/2018) SYU/SYU . [address] [address] PATHOLOGY RPT PROCEDURE Name: KOURTNEY VANCE Room #: 350-P ADM IN M.R.#: [id number] ������������������ Admission: 08/28/18 ������������������ Date of : 75 Discharge: Report #: [id number] Path Case #: [id number] Pathologist provided ICD-10: R53.1, R53.83 . 02 CPT . 429178 Specimen Comment: A courtesy copy of this report has been sent to Specimen Comment: [phone], , . Specimen Comment: Report sent to ,DR RICHTER / DR ALFRED Specimen Comment: A duplicate report has been generated due to demographic updates. Performed at: 01 [facility] [address] [facility] [facility] [address], [place], [place] [id number] MD Tung Hare MD Phone: [phone] Performed at: [address] [facility] [address] [id number] MD Nallely Georges MD Phone: [phone]
[2018-09-04 15:57] VITALS: BP 126/89
--- NOTE | 2018-09-04 18:09 | NUR ---
pt is A&OX3, pt 's vs are stable, pt is continuing PO and iv ABT, PT gets up to bathroom with assist, pt denies pain and sob at this time.
[2018-09-04 19:20] VITALS: BP 100/62
[2018-09-05 03:41] VITALS: BP 110/75
--- NOTE | 2018-09-05 04:55 | NUR ---
Assumed pt care at 1900. A/OX4,VSS. Up with SBA.Pt had bouts of loose stools at HS,had a shower with supervision with no new skin issues noted. Medicated with Imodium with partial relief reported. Special contact isolation maintained. Fall precautions in place,pt calls approp. Has a left chest tesio dsg C/D/I. Fall precautions in place, will continue to monitor pt.
[2018-09-05 05:29] LABS: PLATELET COUNT 100 thou/uL (150-400)
[2018-09-05 05:31] LABS: HEMATOCRIT 29.1 % (37.0-47.0); HEMOGLOBIN 9.6 gm/dL (12.0-15.0); MCH 27.1 pg (26.0-34.0); MCHC 32.9 g/dL (28.0-37.0); MCV 82.5 fL (80.0-100.0); RBC 3.53 mil/uL (4.20-5.00); RDW 19.8 % (10.5-14.5)
[2018-09-05 05:34] LABS: WBC 1.5 thou/uL (4.0-11.0)
[2018-09-05 05:38] LABS: ALBUMIN 1.9 g/dL (3.4-5.0); CALCIUM 7.4 mg/dL (8.5-10.1); CREATININE 8.7 mg/dL (0.6-1.0); POTASSIUM 3.5 mmol/L (3.5-5.1); TOTAL BILIRUBIN 0.6 mg/dL (<0.1-1.0)
[2018-09-05 06:27] LABS: ABSOLUTE NEUTROPHILS 0.8 thou/uL (1.4-8.2); ANISOCYTOSIS 2+; PLATELET ESTIMATE DECREASED; POIKILOCYTOSIS 1+; POLYCHROMASIA 1+
[2018-09-05 08:06] VITALS: BP 107/72
--- NOTE | 2018-09-05 10:37 | NUR ---
RD consult received, pt unhappy with food choices. Obtained some food preferences but some not allowed as pt currently on soft, fiber restricted diet s/p esophageal dilitation on 09/02. Pt voices no further swallow difficulty. Spoke with RN who will obtain clarification from GI if this restriction can be lifted and just continue renal diet.
[2018-09-05 16:06] VITALS: BP 121/77
--- NOTE | 2018-09-05 18:50 | NUR ---
assumed care of pt at 0700, pt is A/O times four, denies pain or discomfort at this time. pt had dialysis and 2.5l pulled out, pt tolerated it well.
[2018-09-05 19:30] VITALS: BP 133/96
--- NOTE | 2018-09-06 02:25 | NUR ---
PATIENTIS ALERT AND ORIENTED. PATIENT IS SBA. PATIENT HAS A DIALYSIS CATH. PATIENT IS MS. PATIENT IS ANURIC HAS DIALYSIS T/THUR/SAT. PATIENTS LBM WAS THE 18TH. PER ELVIE RICHTER IMODIUM IS OKAY. PATIENT IS NO LONGER ON ANTI REJECTION MEDS. MEDS WERE DC A MONTH AGO. POC IS TO AWAIT BONE BIOPSY RESULTS. PATIENT IS RESTING COMFORTABLY IN BED. PATIENT DENEIS PAIN. TOLERATING RENAL DIET NO NAUSEA. PATIENT IS PROGRESSING TO GOALS.
[2018-09-06 03:45] VITALS: BP 136/80
[2018-09-06 07:11] VITALS: BP 107/73
--- NOTE | 2018-09-06 07:39 | HC ---
[facility] [address] [address] CONSULTATION Name: KOURTNEY VANCE Room #: 350-P ADM IN M.R.#: [id number] Admission: 08/28/18 ������������������ Attend Phys: Wyatt Devine Discharge: ������������������ Date of : 75 Report #: [id number] THIS REPORT FOR: //name// CC: Cory Ornelas REASON FOR CONSULTATION: End-stage renal disease. REASON FOR PRESENTATION: Nausea. HISTORY OF PRESENT ILLNESS: This is a very well-known patient to me. She is a 43-year-old with extensive past medical history including and not limited to failed kidney transplant, end-stage renal disease, maintained on hemodialysis. She has history of scleroderma, mixed connective tissue disorder, lupus nephritis. She had membranous nephritis, class V, class 3 back in 2006. Unfortunately, this has progressed rather rapidly and she ended up having to start hemodialysis. She had a renal transplant donor back in 2010. She was maintained on Myfortic, prednisone and tacrolimus. 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 She has to be initiated on hemodialysis. This was initiated back in 2018. She has a very complicated anemia and lymph node issues. We ended up doing an excisional biopsy on her right groin lymph node; however, this was consistent with an acute inflammatory process with negative flow cytometry. She had been evaluated by Dr. Chen in the past for those lymph nodes, the anemia and the leukopenia and there was a discussion that they might consider bone marrow biopsy. For the last few weeks, the patient has reported decreased oral intake with persistent nausea. She has no fever. She also reported fever that started last evening. The patient is utilizing a left IJ tunneled catheter. She has this as a last hemodialysis access. She was deemed not to have any good vessel suitable for AV fistula. Because of her presenting symptoms, I was asked to evaluate and continue with her dialysis care and needs. PAST MEDICAL HISTORY: 1. Scleroderma. 2. Lupus nephritis, culminating in end-stage renal disease. 3. Status post cadaveric renal transplant in 2010, failed. 4. Raynaud's phenomenon. 5. IJ catheter. 6. Renal biopsy. 7. Lymph node biopsy. 8. Severe hypertension in the past. 9. Noncompliance with medications in the past. MEDICATIONS REPORTED: 1. Lisinopril. 2. Zyrtec. 3. Flonase. 4. Calcium carbonate. [address] [address] CONSULTATION Name: KOURTNEY VANCE Room #: 350-P [facility] IN M.R.#: [id number] Admission: 08/28/18 ������������������ Attend Phys: Wyatt Devine Discharge: ������������������ Date of : 75 Report #: [id number] 5. Valcyte. 6. Amlodipine. 7. Carvedilol. ALLERGIES: VANCOMYCIN. SOCIAL HISTORY: She is . She denies drug or alcohol abuse. REVIEW OF SYSTEMS: GENERAL: Significant for weakness. She also has fever. CARDIOVASCULAR: No chest pain or palpitation. PULMONARY: Significant for cough and dyspnea on exertion. GASTROINTESTINAL: Nausea with weight loss. GENITOURINARY: She is not making any urine PHYSICAL EXAMINATION: GENERAL: The patient was alert, oriented. She did have a temperature spike to 39.3 this morning. HEAD AND NECK: Left IJ tunneled catheter. CHEST: Decreased air entry bilaterally. CARDIOVASCULAR: No rub detected. Systolic murmur present. ABDOMEN: Soft, nontender. LOWER EXTREMITIES: Bilateral inguinal lymph node present. LABORATORY DATA: Reviewed. Sodium is 127, BUN 42, and creatinine 9.4. Liver enzymes are within normal. Total protein is up to 10 and albumin is 2.6. White blood cell count is 2.1. ASSESSMENT, IMPRESSION AND PLAN: 1. End-stage renal disease. 2. Hypertension. 3. Leukopenia. 4. Thrombocytopenia. 5. Failed kidney transplant. 6. Known chronic immunosuppressed status with multiple immunosuppressive medications utilized in the past. 7. We will arrange for the patient to have her usual hemodialysis today. 8. She has had lymph node biopsies done in the past and this was consistent with an acute inflammatory process. She now presenting with fever and nausea and weight loss. Cultures were obtained. We will wait for the final results. She has been covered empirically with antibiotic. 9. We will need GI to evaluate. [address] [address] CONSULTATION Name: KOURTNEY VANCE Room #: 350-P ADM IN M.R.#: [id number] Admission: 08/28/18 ������������������ Attend Phys: Wyatt Devine Discharge: ������������������ Date of : 75 Report #: [id number] I am very concerned about an ongoing malignant process and I will discuss with the Hematology team to consider a bone marrow biopsy. ��������������������������������������������� <ELECTRONICALLY SIGNED> ���������������������������������������� By: Trent Christine MD ��������������������������������������������� 09/06/18 0739 [id number] Trent Christine MD /nt
[2018-09-06 12:59] LABS: HEMOGLOBIN 9.4 gm/dL (12.0-15.0)
[2018-09-06 13:01] LABS: MCH 26.8 pg (26.0-34.0); MCHC 32.4 g/dL (28.0-37.0); MCV 82.9 fL (80.0-100.0); RDW 19.7 % (10.5-14.5)
[2018-09-06 13:05] LABS: WBC 1.6 thou/uL (4.0-11.0)
[2018-09-06 13:47] LABS: PLATELET COUNT 92 thou/uL (150-400)
[2018-09-06 13:53] LABS: ABSOLUTE NEUTROPHILS 0.9 thou/uL (1.4-8.2)
[2018-09-06 13:54] LABS: ANISOCYTOSIS 2+; OVALOCYTES OCCASIONAL; SCHISTOCYTES OCCASIONAL
[2018-09-06 15:17] VITALS: BP 120/88
[2018-09-06 19:15] VITALS: BP 115/78
--- NOTE | 2018-09-07 02:37 | NUR ---
PATIENT IS ALERT AND ORIENTED. PATIENT IS SBA. PATIENT IS IN ISO FOR C-DIFF AND NEUTROPENIC. PATIENT HAS DIALYSIS T, TH, SAT. PENDING DIALYSIS TODAY. PATIENT LBM WAS THE 19TH (STILL A LITTLE LOOSE PER PATIENT). PENDING PATHOLOGY REPORT TO DETERMINE FUTHER TREATMENT. PATIENT DENIES PAIN OR NAUSEA. PATENT IS RESTING COMFORTABLY IN BED. WCM. PATIENT IS PROGRESSING TO GOALS
[2018-09-07 05:51] LABS: HEMATOCRIT 29.2 % (37.0-47.0); HEMOGLOBIN 9.7 gm/dL (12.0-15.0); MCH 27.4 pg (26.0-34.0); MCHC 33.2 g/dL (28.0-37.0); MCV 82.3 fL (80.0-100.0); PLATELET COUNT 93 thou/uL (150-400); RBC 3.54 mil/uL (4.20-5.00); RDW 20.4 % (10.5-14.5)
[2018-09-07 05:55] LABS: ALBUMIN 1.9 g/dL (3.4-5.0); CALCIUM 7.4 mg/dL (8.5-10.1); PHOSPHORUS 4.1 mg/dL (2.5-4.9)
[2018-09-07 05:56] LABS: CREATININE 7.6 mg/dL (0.6-1.0)
[2018-09-07 06:28] LABS: ABSOLUTE NEUTROPHILS 0.5 thou/uL (1.4-8.2); ANISOCYTOSIS 2+; ATYPICAL LYMPHS 3 %; PLATELET ESTIMATE DECREASED
[2018-09-07 06:32] LABS: OVALOCYTES 1+; SCHISTOCYTES OCCASIONAL
[2018-09-07 07:41] VITALS: BP 132/92
[2018-09-07 19:43] VITALS: BP 127/95
--- NOTE | 2018-09-07 19:45 | NUR ---
PATIENT ALERT AND ORIENTED WITH DIAYSIS THIS AM. COMPLAINTS OF RIGHT AXILLA SITE BIOPSY PAIN RELEIVED BY REPOSITIONING AND LOOSE STOOLS WHICH SHE IS TAKING ANTIDIAHEAL MEDS. FOLLOWING NEUTRAPENIC PRECAUTIONS. OFFERED TO ASSIST UP TO CHAIR BUT BENITO REMAINED IN BED ALL DAY.
[2018-09-08 04:06] VITALS: BP 133/91
--- NOTE | 2018-09-08 05:50 | NUR ---
PT MAKING PROGRESS TOWARDS GOALS. NO FEVER THOUGH PT STATED THAT SHE FELT SHE HAD ONE DUE TO A 99.1 ORAL READING. NO NAUSEA REPORTED. CONTINUE TO MONITOR.
[2018-09-08 06:28] LABS: WBC 1.5 thou/uL (4.0-11.0)
[2018-09-08 08:30] VITALS: BP 133/96
--- NOTE | 2018-09-08 11:24 | NUR ---
care of pt assumed this am @ ~0700. pt noted to be sleepy this am, stating she did not sleep well last night. pt requested breakfast be held outside (to be heated) for comsumption later this am (~ 0930am). pt denies co n/v today. pt denies co pain today. pt on room air and denies any soa. pt noted to have a balanced, steady and coordinated gait. pt denies any dizziness when sitting or ambulating. pt removed from fall risk precautions, cadet socks on. pt encouraged to ambulate in room and outside in hallways several times today and also to sit up in her chair. pt verbalized a poor appetite for breakfast this am, menu given so that she can customize her meals to help w/ her desire for food.
[2018-09-08 18:06] VITALS: BP 142/98
--- NOTE | 2018-09-08 18:27 | NUR ---
XFER PT CAME IN FROM 3W. PT ORIENTED TO RM. ISO MAINTAIN. WILL CONTINUE TO MONITOR.
--- NOTE | 2018-09-09 04:27 | NUR ---
ASSUMED CARE AROUND 1900. AXOX4. REVERSE ISO FOR RENAL TRANSPLANT AND SPECIAL CONTACT FOR C.DIFF. PT REPORTS DEC DIARRHEA WITH FORMIMG STOOL. NO S/S ACUTE DISTRESS NOTED OR RERPOTED AT THIS TIME. WILL CONT TO MONITOR FOR ANY CHANGES IN CONDITION.
[2018-09-09 08:00] VITALS: BP 144/105
--- NOTE | 2018-09-09 13:07 | PATH ---
[facility] [address] [address] [place] [address] PATHOLOGY RPT PROCEDURE Name: KOURTNEY VANCE Room #: 455-P ADM IN M.R.#: [id number] ������������������ Admission: 08/28/18 ������������������ Date of : 75 Discharge: Report #: [id number] Path Case #: [id number] [facility] Accession Number: [id number] . 01 Material submitted: . PART A: bone - BONE MARROW BIOPSY PART B: bone - BONE MARROW CLOT PART C: bone - BONE MARROW ASPIRATE SLIDES PART D: bone - PERIPHERAL BLOOD SMEARS PART E: bone - BONE MARROW FLOW . 01 Clinical history: . Rule out CA, nausea, weakness, fatigue, fever, please refer to requisition for additional information . The patient is a 43-year-old female who presented to the emergency room with increasing nausea and weakness and an episode of fever. She also was noted to have pancytopenia, lymphadenopathy and some weight loss with anorexia. A bone marrow biopsy performed. . 02 Diagnosis: Bone marrow aspirate, biopsy of cell clot and peripheral blood: - Peripheral blood with mild to severe pancytopenia and monocytosis. - Mildly hypercellular bone marrow with mild dyspoiesis and mild reticulin fibrosis. Please see comment. (RA:sánchez; 09/05/2018) . Special studies report received from [facility], [address] [place] [address], [address], [place], [address], on case [id number], labeled with their number [id number], dated 09/05/2018. . Flow Cytometry: Hematologic Neoplasia Assessment . Clinical History Fever, lymphadenopathy, weight loss and anorexia . Indication for Study Evaluation for myeloproliferative neoplasm . Specimen Bone Marrow Aspirate . Viability 89% (7AAD exclusion) . Interpretation Bone Marrow Aspirate: - No immunophenotypic evidence of an increased blast population. [address] [address] PATHOLOGY RPT PROCEDURE Name: KOURTNEY VANCE Room #: 455-P ADM IN M.R.#: [id number] ������������������ Admission: 08/28/18 ������������������ Date of : 75 Discharge: Report #: [id number] Path Case #: [id number] - No immunophenotypic evidence of a T-cell or B-cell lymphoproliferative disorder. . Comments Flow cytometric analysis detected no immunophenotypic evidence of a clonal B-cell population or an increased blast population. Correlation with available clinical, laboratory, and morphologic data is recommended. . Populations Analyzed Myeloid Blasts: 0.6% No significant immunophenotypic abnormalities Lymphocytes: 35% B-cells: 10.4%, polytypic/polyclonal sIg light chain pattern T-cells: no significant abnormalities of the markers tested CD4+ T-cells: 14.6% (including 0.3% CD57+ cells) CD8+ T-cells: 6.0% (including 1.2% CD57+ cells) CD4:CD8: 2.4 NK cells: 1.2% Neutrophilic Cells: 51% Decreased CD10; partial CD56 (approximately 3% of neutrophilic cells positive) Monocytic Cells: 10% No significant abnormalities of the markers tested Eosinophils: 0% No relative increase Basophils: 0.3% No relative increase Plasma Cells: 0.1% Few detected; no overt abnormalities of the surface markers tested (plasma cells are typically underrepresented by flow cytometry; cytoplasmic light chains were not assessed) Hematogones: 0.3% Normal B-cell precursors CD45 Negative 1% No significant reactivity with the markers Events/Debris: tested (may represent unlysed red blood cells, erythroid precursors, platelets, debris, etc.) (erythroid precursors may be underrepresented due to sample lysis/processing) . Morphologic Evaluation A slide was reviewed for quality process engineer purposes only. . Specimen Description Total Cell Yield: 1.24 x 10 and 6 . Pertinent Prior Test Results Received Date Test Type Specimen Type Result 09/03/2018 Flow Cytometry Tissue Result Number: [id number] Lymph Node, Right Axillary: - In the sample analyzed, there is no evidence for a B-cell lymphoma ([facility] [address] [place] [address] PATHOLOGY RPT PROCEDURE Name: KOURTNEY VANCE Room #: 455-P [facility] IN M.R.#: [id number] ������������������ Admission: 08/28/18 ������������������ Date of : 75 Discharge: Report #: [id number] Path Case #: [id number] study). . Reagent(s) Used CD2, CD3, CD4, CD5, CD7, CD8, CD10, CD11b, CD13, CD14, CD16, CD19, CD20, CD33, CD34, CD38, CD45, CD56, CD57, CD64, CD117, HLA-DR, kappa, lambda, CytoKappa, CytoLambda . at [facility] [employer], [employer]. Theodore No MD Pathologist . . Intended Use Flow cytometry is optimally used to immunophenotypically characterize abnormal populations when they are detected. Negative flow cytometry results do not exclude lymphoma or neoplasia. Possible false negative flow cytometry results may occur in, but are not limited to, the following: neoplastic cells in Hodgkin lymphoma are not typically adequately represented by routine clinical flow cytometry; neoplastic cells may be lost or inadequately represented due to degeneration, sample processing, sampling artifact, or patchy involvement; plasma cells are typically underrepresented by flow cytometry; immature cells/blasts may be underrepresented due to hemodilution; myeloproliferative disorders and low grade myelodysplasia may not have immunophenotypic abnormalities or increased blasts. Correlation with all available clinical, laboratory, and morphologic data is always necessary to assess for the possibility of false negative flow cytometry results and to establish a diagnosis. Each marker in this analysis was used to assess for potential antigenic abnormalities or to evaluate detected abnormalities. . Disclaimer(s) This test was performed at [employer]. at [address], [address] - Program Strategist: Shant Rodas MD. [employer] is a business unit of [employer] a wholly-owned subsidiary of [employer]. . Any image or images that accompany this report are member service representative images only and should not be used to render a diagnosis. . This test was developed and its performance characteristics determined by [employer] [facility]. It has not been cleared or approved by the Food and Drug Administration (FDA). The FDA has determined that such clearance or approval is not necessary. . For inquiries, the physician may contact Lab: [phone] [address] PATHOLOGY RPT PROCEDURE Name: KOURTNEY VANCE Room #: 455-P ADM IN M.R.#: [id number] ������������������ Admission: 08/28/18 ������������������ Date of : 75 Discharge: Report #: [id number] Path Case #: [id number] . A complete copy of the report is on file. . Professional services performed by [employer]. at [address], [place] [address]. Technical services performed by [facility], [employer]. at [address], [place] [address]. . (AMJ 09/05/2018) AZJ/09/05/2018 . 02 Comment: Overall, the bone marrow biopsy shows mild dyspoiesis with dysmegakaryocytopoiesis including occasional micro megakaryocytic and nuclear forms. Few nuclear budding involving the erythroid precursors are also noted. The findings may suggest myelodysplastic syndrome. However, non-clonal causes of myelodysplastic changes should also be considered before a diagnosis of myelodysplastic syndrome is rendered. There is also monocytosis noted in the peripheral blood and the possibility of a chronic myeloproliferative/myelodysplastic syndrome should also be considered. Correlation with clinical findings and cytogenetic studies recommended. . These findings were discussed with Dr. Nelson Thakur on 09/09/18 at 12:15 am. (JMQ:composition floor layer; 09/05/2018) . 02 Electronically signed: . Kaylene Dillard MD, Pathologist NPI- [id number] . 01 Gross description: . A. Received in formalin labeled "Kourtney Vance, BM biopsy," is a single needle core of mcghee bone measuring 1.5 cm in length and 0.2 cm in diameter. The specimen is submitted entirely in cassette A1, following decalcification. . B. Received in formalin labeled "Kourtney Vance, BM aspirate (clot)," is an aggregate of dark mcghee blood clot measuring 6.4 x 3.7 x 1.8 cm. The specimen is filtered and entirely submitted in cassette B1-B15. (TSD; 09/02/2018) TOB/TOB . 02 Microscopic: . The bone marrow biopsy performed by Dr. Rosario at [facility]. Specimens are submitted for morphology, flow cytometry and cytogenetic studies. [address] [address] PATHOLOGY RPT PROCEDURE Name: KOURTNEY VANCE Room #: 455-P ADM IN M.R.#: [id number] ������������������ Admission: 08/28/18 ������������������ Date of : 75 Discharge: Report #: [id number] Path Case #: [id number] . CBC Data (08/31/18): WBC 2.4, RBC 3.64, hemoglobin 9.8, hematocrit 30.3, MCV 83.2, RDW 20 %, platelet count 118,000. White blood cell count differential: 69% segs, 1% bands, 24% lymphs, 5% monos, 1% atypical lymphs. . Peripheral Blood: Red blood cells are normochromic with minimal anisopoikilocytosis including occasional microcytic forms without schistocytes or morphologic evidence of a hemolytic process identified. Platelets are moderately decreased with rare giant forms. White blood cells are severely decreased with predominance of mature segmented neutrophils. The neutrophils show rare hypolobated and nuclei. The lymphocytes are mostly small and mature with a few atypical reactive lymphocytes. . Bone Marrow Aspirate: Marrow spicules are adequate, hypercellular, and polymorphous. Megakaryocytes are present with a few nuclei and micromegakaryocyticforms. Erythroid precursors show few nuclear budding. Granulocytic precursors show full spectrum maturation. There is no increase in blasts identified. 500 cell count: 1% blasts, 1% promyelocytes, 12% meta- and myelocytes, 48% segs and bands, 18% erythroid precursors, 9% lymphocytes, 2% monocytes, and 10% plasma cells. The M:E ratio is 3:1. . Iron stain: Negative due to lack of spicules. . Bone Marrow Biopsy and Cell Clot: The bone marrow core biopsy averages 50-70% in cellularity. Megakaryocytes average 1-6/hpf with few hypolobated and nuclei, as well as micromegakaryocytic forms. Abundant erythroid and granulocytic precursors are present without clusters of blasts, atypical lymphoid aggregates, or other marrow infiltrative process. A focal lipogranuloma is noted. The cell clot is mostly composed of clotted blood with a minute cluster of hematopoietic elements. . To confirm flow cytometric findings and characterize the blasts in a tissue architectural context, immunohistochemical stains are performed with appropriate controls: . (Block A1) CD34 - negative for increased blasts CD117 - negative for increased blasts AE1/AE3 - negative. . Iron stain (A1 and B1) - Moderately increased marrow iron stores without ringed sideroblasts. . [facility] [address] [place] [address] PATHOLOGY RPT PROCEDURE Name: KOURTNEY VANCE Room #: 455-P ADM IN M.R.#: [id number] ������������������ Admission: 08/28/18 ������������������ Date of : 75 Discharge: Report #: [id number] Path Case #: [id number] Reticulin stain (A1) - Mild to moderate reticulin fibrosis (MF1-2). . (RA:sánchez; 09/05/2018) . 02 Pathologist provided ICD-10: D61.818, D72.821 . 02 CPT . 494649, 434990, 330324, 577085, 740348, 753080, 387504, 101641, 270765, G19778, X65265 Specimen Comment: A courtesy copy of this report has been sent to Specimen Comment: [phone], , , . Specimen Comment: Report sent to ,DR RICHTER,DR THAKUR / DR ISLAS Performed at: 01 [facility] [address] [facility] [facility] [address], [place] [id number] MD Tung Hare MD Phone: [phone] Performed at: 02 [facility] [place] [address] [id number] MD Kaylene Dillard MD Phone: [phone]
[2018-09-09 15:00] VITALS: BP 129/93
--- NOTE | 2018-09-09 16:35 | NUR ---
PT IS ALERT AND ORIENTED X4. COMPLAINS OF HEADACH AND BACK PAIN. HEAT PACK TO NECK AND PAIN MEDS. RATES PAIN A 5 ON THE PAIN SCALE. LUNGS ARE CLEAR. ON ROOM AIR. ABDOMEN IS SOFT AND ROUND. UP WITH PHYSCIAL THERAPY TODAY AND WALKED. MINIMAL ASSISTANCE NEEDED. TOLERATING DIET WELL WITH NO ISUES NOTED . CALL LIGHT WITHIN REACH IF NEEDS ASSISTANCE.
--- NOTE | 2018-09-09 16:49 | NUR ---
PT IS ALERT AND ORIENTED X4. UP TO BATHROOM WITH ASSISTANCE X1. LUNGS ARE CLEAR. PT HAS A DIALYSIS CATHETERIN RIGHT CHEST. NO DIALYSIS TODAY. EATING A LITTLE OF DIET ENCOURAGE HER TO EAT PROTEIN FOR STRENGTH. DENIES ANY PAIN AT THIS TIME. PT THIS AM HAD CHEST PAIN EKG. DONE AND TROPONIN NOTIFIED TO PHYSICAN. NITRO GIVEN AND CHEST PAIN RESOLVED. ABDOMEN IS SOFT. CALL LIGHT WITHIN REACH IF NEEDS ASSISTANCE TO BATHROOM. NO FURTHER CONCERNS OR ISSUES NOTED AT THIS TIME
[2018-09-09 20:15] VITALS: BP 124/90; BP 139/74
[2018-09-10 04:18] VITALS: BP 152/105
[2018-09-10 07:38] VITALS: BP 138/102
--- NOTE | 2018-09-10 07:50 | NUR ---
ASSUMED CARE AROUDN 190. AXOX3. C/O NAUSEA, MEDICATED. C/O FEELING SHAKEN INSIDE THE BODY. VSS. PER PT, ALREADY ADDRESSED TO PHYSICIAN BEFORE WITHOUT TX INITIATION. ISO MAINTAINED. NO S/S ACUTE DISTRESS NOTED OR REPORTED AT THIS TIME. CARE TRANSFERRED TO DAY RN AT THIS TIME.
[2018-09-10 08:40] LABS: ABSOLUTE NEUTROPHILS 4.5 thou/uL (1.4-8.2); BASOPHILS 0.5 % (0.0-2.0); HEMATOCRIT 31.1 % (37.0-47.0); LYMPHOCYTES 11.2 % (24.0-44.0); MCH 26.7 pg (26.0-34.0); MCHC 32.1 g/dL (28.0-37.0); MCV 83.2 fL (80.0-100.0); MONOCYTES 7.2 % (1.0-8.0); POLYS 81.1 % (36.0-66.0); RBC 3.74 mil/uL (4.20-5.00); RDW 19.7 % (10.5-14.5); WBC 5.5 thou/uL (4.0-11.0)
[2018-09-10 08:47] LABS: CALCIUM 7.1 mg/dL (8.5-10.1); CREATININE 9.3 mg/dL (0.6-1.0); MAGNESIUM 1.9 mg/dL (1.8-2.4); PHOSPHORUS 4.8 mg/dL (2.5-4.9); POTASSIUM 4.5 mmol/L (3.5-5.1); TOTAL BILIRUBIN 0.8 mg/dL (<0.1-1.0); TOTAL PROTEIN 7.7 g/dL (6.4-8.2)
[2018-09-10 09:11] LABS: ANISOCYTOSIS 1+; LARGE PLATELETS FEW; OVALOCYTES 1+; PLATELET COUNT 88 thou/uL (150-400); PLATELET ESTIMATE SLIGHTLY DECREASED
[2018-09-10 13:05] VITALS: BP 129/95
--- NOTE | 2018-09-10 16:07 | NUR ---
CARE TEAM INDICATED THAT PT IS PROGRESSING TOWARD GOAL OF DC. PT HAD DIALYSIS THIS DAY. CM TO FOLLOW INDICATED WITH DC PLANNING.
--- NOTE | 2018-09-10 20:22 | NUR ---
ASSUMED CARE OF PATIENT AT 0715, PATIENT ALERT AND ORIENTED X 4. UP AD RL. PATIENT HAS MULTIPLE CONCERNS/DR ISLAS AWARE. PATIENT HAS LEFT CHEST TEMP. DIALYSIS CATHETER IN PLACE. PATIENT RECEIVED DILAYSIS TODAY,2.5 LITERS OFF, VITALS STABLKE, BUT PATIENT TACHY DURING TREATMENT. PATIENT HAS RIGHT FOREARM IV IN PLACE, FLUSHED WITH NS AND REMAINS PATIENT. DR MCCLAIN HERE THIS AFTERNOON, BIOPSY OF RIGHT AXILLARY TOMORROW, CLEAR LIQ. FOR BREAKFAST AMD NPO AFTER BREAKFAST. WILL CONTINUE TO MONITOR.
[2018-09-11 04:23] VITALS: BP 118/84
--- NOTE | 2018-09-11 05:46 | NUR ---
PATIENT IS ALERT AND ORIENTED. PATIENT IS UP AD RL. PATIENT IS ON ROOM AIR. PATIENTS DIALYSIS CATH DRESSING WAS CHANGED. PATIENTS IV DRESSING WAS CHANGED. PATIENT GET DIALYSIS T, TH, SAT. PATIENT IS CLEAR LIQUIDS FOR BREAKFEST AND NPO AFTER BREAKFEST FOR BIOPSY TODAY. PAITIENTS LABS HAVE IMPROVED. PATIENT IS IN ISO FOR C-DIFF PER PATIENT STOOL HAVE BEEN FOR FIRM. PATIENT DENIES PAIN. PATIENT IS RESTING COMFORTABLY IN BED. WCM. PATIENT IS PROGRESSING TO GOALS.
--- NOTE | 2018-09-11 07:36 | EKG ---
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 NIELSON : 1975 Requested By: Cory Ornelas Order Number: [id number] MD: Rg Swan Measurements Intervals [place] Rate: 96 P: 50 UT: 207 QRS: 69 QRSD: 85 T: 101 QT: 381 QTc: 482 Interpretive Statements Sinus rhythm Prolonged UT interval Low voltage, extremity leads Consider left ventricular hypertrophy Nonspecific T abnormalities, lateral leads Compared to ECG 08/28/2018 17:42:56 First degree AV block now present Right-axis deviation no longer present T-wave abnormality still present Electronically Signed On 09-11-2018 7:36:40 CDT by Rg Swan [email or web address] ��������������������������������������������� <ELECTRONICALLY SIGNED> ���������������������������������������� By: Rg Swan MD, [facility] ��������������������������������������������� 09/11/1836 9 9 Rg Swan MD, [facility] /EPI
[2018-09-11 07:40] VITALS: BP 114/81
[2018-09-11 15:25] VITALS: BP 120/83
--- NOTE | 2018-09-11 16:05 | NUR ---
CARE TEAM INDICATING POSSIBLE DC HOME SUNDAY. CM TO FOLLOW INDICATED WITH DC PLANNING.
[2018-09-11 20:19] VITALS: BP 114/80
--- NOTE | 2018-09-11 21:06 | NUR ---
ASSUMED CARE OF PATIENT AT 0715, PATIENT ALERT AND ORIENTED X 4. PATIENT UP AD RL. BUT PT SAW PATIENT AND STATES SHE IS UNSTEADY, AND NEEDS SBA, PATIENT INSTRUCTED TO CALL FOR ASSISTANCE, BED ALARM IN PLACE. PATIENT ON CLEAR LIQUID DIET FOR BREAKFAST, NPO FOR BIOPSY OF RIGHT UNDER ARM PIT. DR MCCLAIN CALLED AND STATED UNABLE TO DO TODAY WILL DO TOMORROW, PATIENT WILL HAVE CLEAR LIQUID DIET FOR BREAKFAST AND NPO AFTER BREAKFAST. PATIENT C/O NAUSEA X 1, ZOFRAN 4 MG IV GIVEN, WITH GOOD RELIEF. PATIENT STATES SHE FEELS BETTER TODAY, ATE MEALS W/O DIFFICULTY. PATIENT HAS RIGHT FOREARM IV IN PLACE, FLUSHED AND REMAINS PATENT. PATIENT HAD LOOSE STOOL, WHEN SHE WIPED SMALL AMT OF BLOOD NOTED, SHE STATES THIS IS NOT THE FIRST TIME SHE SHE HAS BEEN HERE, VERY SMALL AMT NOTED. ISOLATION FOR C-DIFF AND NEUTROPENIA PRECAUTIONS DUE TO FAILED KIDNEY TRANSPLANT. PATIENT HAS LEFT CHEST TEMP. DIALYSIS CATHETER IN PLACE, DIALYSIS TTS. WILL CONTINUE TO MONITOR.
[2018-09-12 04:48] VITALS: BP 118/77
--- NOTE | 2018-09-12 05:01 | NUR ---
Pt. rested quietly at intervals during the night when checked on during frequent rounds. She offers no c/o pain.
[2018-09-12 07:14] VITALS: BP 113/81
[2018-09-12 13:49] LABS: HEMATOCRIT 28.5 % (37.0-47.0); HEMOGLOBIN 9.4 gm/dL (12.0-15.0); MCH 27.5 pg (26.0-34.0); MCHC 32.9 g/dL (28.0-37.0); MCV 83.5 fL (80.0-100.0); RBC 3.42 mil/uL (4.20-5.00); RDW 20.2 % (10.5-14.5)
[2018-09-12 13:52] LABS: WBC 1.6 thou/uL (4.0-11.0)
[2018-09-12 14:05] LABS: CALCIUM 7.7 mg/dL (8.5-10.1); POTASSIUM 3.4 mmol/L (3.5-5.1)
[2018-09-12 14:07] LABS: CREATININE 3.5 mg/dL (0.6-1.0)
[2018-09-12 18:19] VITALS: BP 150/95
--- NOTE | 2018-09-12 20:06 | NUR ---
ASSUMED CARE 0700. A/O X4, FROM HOME. ABLE TO MAKE NEEDS KNOWN. NPO FOR SURGER BIOPSY TODAY AT 1500. POST-OP PATIENT RATING PAIN 3/10, DRESSING AXILARY C/D/I. REGULAR DIET STARTED. UP AB RL. DIALYSIS THIS MORNING 2500 OUT.
[2018-09-12 21:11] VITALS: BP 126/92
[2018-09-13 05:07] VITALS: BP 117/81
[2018-09-13 05:18] LABS: HEMATOCRIT 25.1 % (37.0-47.0); HEMOGLOBIN 8.3 gm/dL (12.0-15.0); MCH 27.4 pg (26.0-34.0); MCHC 32.9 g/dL (28.0-37.0); MCV 83.2 fL (80.0-100.0); PLATELET COUNT 79 thou/uL (150-400); RBC 3.01 mil/uL (4.20-5.00); RDW 20.5 % (10.5-14.5)
[2018-09-13 06:44] LABS: ABSOLUTE NEUTROPHILS 1.1 thou/uL (1.4-8.2)
[2018-09-13 06:45] LABS: ANISOCYTOSIS 2+; PLATELET ESTIMATE DECREASED; POIKILOCYTOSIS 2+
--- NOTE | 2018-09-13 07:11 | NUR ---
ASSUMED CARE AROUND 1900. AXOX4. S/P R AXILLARY NODULE BIOPSY. DRESSING CDI. PAIN MANAGED PER MD ORDER. ISOLATION FOR CDIFF AND NEUTROPENIA. NO S/S ACUTE DISTRESS NOTED OR REPORTED AT THIS TIME. CARE TRANSFERRED TO DAY RN AT THIS TIME.
[2018-09-13 08:15] VITALS: BP 123/86
[2018-09-13] MEDS ORDERED: COLESTID1 GM PO (10:25)
[2018-09-13] MEDS ORDERED: VALACYCLOVIR500 MG PO (10:25)
[2018-09-13] MEDS ORDERED: HYDROCODON-ACE1 EAC7 PO (10:26)
[2018-09-13] MEDS ORDERED: MUCINEX600 MG PO (10:26)
[2018-09-13] MEDS ORDERED: PANTOPRAZOLE SO40 M1 PO (10:27)
[2018-09-13 15:20] VITALS: BP 123/86
[2018-09-13 15:23] VITALS: BP 123/86
--- NOTE | 2018-09-13 15:39 | NUR ---
CARE TEAM INDICATED THAT PT IS MEDICALLY STABLE TO DC HOME THIS DAY. PT IS TO DC HOME WITH NO NEEDS. CM FAXED FLOW SHEETS TO [facility] AND INDICATED THAT PT IS TO RESUME DIALYSIS SERVICES THERE TOMORROW. NO OTHER CM INTERVENTION INDICATED CASE CLOSED.
--- NOTE | 2018-09-13 16:54 | NUR ---
PT A&OX4, VSS/ SO SIGNS OF DISTRESS, DENIES PAIN. PATIENT HAD RIGHT AXILLARY BIOPSY YESTERDAY, DRESSING C/D/I. PHOTOS TAKEN TODAY OF ALL WOUNDS. BOTH IVS, RIGHT HAND, LEFT FOREARM, REMOVED. PATIENT VERBALIZED UNDERSTANDING OF PRESCRIPTIONS AND DISCHARGE INSTRUCTIONS. ALL BELONGINGS WITH PATIENT.
== END 2018-09-13 17:00 | disposition home or self-care (01) | DRG 802 ==
LOC: ER 17:16 → EROBS 19:50 → 3W 19:50 → 4W 09-08 18:21
PROVIDERS: Anesthesiology; Hospitalist; Internal Medicine Geriatric Medicine; Internal Medicine Hematology & Oncology; Nurse Practitioner Family; Specialist; Surgery; ADMIT Internal Medicine
PROC: 5A1D70Z Performance of Urinary Filtration, Intermittent, Less than 6 Hours Per Day (ICD-10-PCS; 2018-08-28)
PROC: 05HY33Z Insertion of Infusion Device into Upper Vein, Percutaneous Approach (ICD-10-PCS; 2018-08-28)
PROC: 0D758ZZ Dilation of Esophagus, Via Natural or Artificial Opening Endoscopic (ICD-10-PCS; principal; 2018-09-02)
PROC: 07DR3ZX Extraction of Iliac Bone Marrow, Percutaneous Approach, Diagnostic (ICD-10-PCS; principal; 2018-09-02)
PROC: 0DB68ZX Excision of Stomach, Via Natural or Artificial Opening Endoscopic, Diagnostic (ICD-10-PCS; principal; 2018-09-02)
PROC: 07B53ZX Excision of Right Axillary Lymphatic, Percutaneous Approach, Diagnostic (ICD-10-PCS; principal; 2018-09-02)
DX: R59.1 Generalized enlarged lymph nodes (principal); N18.6 End stage renal disease; C85.90 Non-Hodgkin lymphoma, unspecified, unspecified site; A04.72 Enterocolitis due to Clostridium difficile, not specified as recurrent; E87.1 Hypo-osmolality and hyponatremia; K22.10 Ulcer of esophagus without bleeding; D61.818 Other pancytopenia; M06.9 Rheumatoid arthritis, unspecified; K21.9 Gastro-esophageal reflux disease without esophagitis; M34.9 Systemic sclerosis, unspecified; I10 Essential (primary) hypertension; K81.9 Cholecystitis, unspecified; Z85.038 Personal history of other malignant neoplasm of large intestine; D64.9 Anemia, unspecified; D69.6 Thrombocytopenia, unspecified; M32.14 Glomerular disease in systemic lupus erythematosus; K44.9 Diaphragmatic hernia without obstruction or gangrene; K29.70 Gastritis, unspecified, without bleeding; K22.2 Esophageal obstruction; Z99.2 Dependence on renal dialysis; Z87.11 Personal history of peptic ulcer disease; Z79.899 Other long term (current) drug therapy; Z88.1 Allergy status to other antibiotic agents
CPT/HCPCS: 10047; 10779; 10879; 32100; 50010; 50101; 50386; 50403; 51301; 56525; 56526; 62110; 62850; 62900; 70005

== ENCOUNTER 2018-09-14 00:31 | Emergency (ER) | payer OTHER ==
[~2018-09-14] VITALS: Ht 167.6 cm; Wt 54.4 kg
[~2018-09-14 00:31] MED LIST changes: +COLESTID1 GM PO; +FLONASE 0.05%50 MCG NASAL; +HYDROCODON-ACE1 EAC7 PO; +PANTOPRAZOLE SO40 M1 PO; +ZESTRIL40 MG PO; +ZYRTEC10 M5 PO
[2018-09-14 03:12] LABS: HEMATOCRIT 26.7 % (37.0-47.0); HEMOGLOBIN 8.7 gm/dL (12.0-15.0); MCH 27.3 pg (26.0-34.0); MCHC 32.6 g/dL (28.0-37.0); MCV 83.5 fL (80.0-100.0); PLATELET COUNT 87 thou/uL (150-400); RDW 20.2 % (10.5-14.5); WBC 2.3 thou/uL (4.0-11.0)
[2018-09-14 03:19] LABS: CALCIUM 7.4 mg/dL (8.5-10.1); POTASSIUM 5.1 mmol/L (3.5-5.1)
[2018-09-14 03:21] LABS: CREATININE 6.6 mg/dL (0.6-1.0)
[2018-09-14 03:30] LABS: MAGNESIUM 1.8 mg/dL (1.8-2.4); TOTAL BILIRUBIN 0.5 mg/dL (<0.1-1.0); TOTAL PROTEIN 8.3 g/dL (6.4-8.2); TROPONIN-I 0.16 ng/mL (<0.06)
[2018-09-14 03:45] LABS: ABSOLUTE NEUTROPHILS 1.2 thou/uL (1.4-8.2); ANISOCYTOSIS 2+; PLATELET ESTIMATE DECREASED; POLYCHROMASIA 1+
[2018-09-14 03:46] LABS: OVALOCYTES FEW
[2018-09-14 04:59] VITALS: BP 141/104
--- NOTE | 2018-09-16 08:41 | EKG ---
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 : 1975 Requested By: Jefry Cardoso Order Number: [id number] MD: Rg Swan Measurements Intervals [place] Rate: 105 P: 77 HI: 195 QRS: 107 QRSD: 95 T: QT: 361 QTc: 478 Interpretive Statements Sinus tachycardia Low voltage, extremity leads Poor R wave progression Nonspecific ST and T wave abnormality No previous ECGs available for comparison Electronically Signed On 09-16-2018 8:41:11 CDT by Rg Swan [email or web address] ��������������������������������������������� <ELECTRONICALLY SIGNED> ���������������������������������������� By: Rg Swan MD, [facility] ��������������������������������������������� 09/16/18 0841 0313 0313 Rg Swan MD, [facility] /EPI
== END 2018-09-14 04:55 | disposition home or self-care (01) ==
LOC: ER 00:31
PROVIDERS: Emergency Medicine
DX: I12.0 Hypertensive chronic kidney disease with stage 5 chronic kidney disease or end stage renal disease (principal); N18.6 End stage renal disease; R53.1 Weakness; Z99.2 Dependence on renal dialysis; Z86.2 Personal history of diseases of the blood and blood-forming organs and certain disorders involving the immune mechanism; M32.9 Systemic lupus erythematosus, unspecified

== ENCOUNTER 2018-09-17 14:45 | Inpatient (IN) | payer OTHER ==
[~2018-09-17] VITALS: Ht 167.6 cm; Wt 54.4 kg
--- NOTE | ~2018-09-17 | HC ---
[facility] [place] [address] CONSULTATION Name: KOURTNEY VANCE Room #: 210-P ADM IN M.R.#: [id number] Admission: 09/17/18 Attend Phys: Claudine Donovan MD Discharge: Date of : 75 Report #: [id number] THIS REPORT FOR: //name// CC: Cory Donovan DATE OF SERVICE: 09/23/2018 HISTORY OF PRESENT ILLNESS: The patient is a 43-year-old -Mauritan[place] female with a complex medical history, recent hospital stay here at [facility] with lupus, scleroderma, end-stage renal disease, on hemodialysis; Raynaud's, failed kidney transplant. She was noted to have lymphadenopathy and thrombocytopenia. Blood cultures were negative. Bone marrow biopsy was negative, lymph node needle aspiration was indeterminant, and final report has come back negative for malignancy. She was discharged to home on 09/13/2018, but ended up being readmitted with increased weakness, fever. She also had positive troponin. She has the chronic lymphadenopathy, chronic pancytopenia. She has multiple application support consultant physicians that are involved with Nephrology, Infectious Disease, Hematology/Oncology. Internal Medicine notes that the working plan is resumption of immunosuppression for lupus flare as all biopsies are negative for malignancy or infection. Internal Medicine notes that she is ready for rehabilitation. We are seeing her in rehabilitation medicine consultation. She is now on prednisone and is feeling better. There is a question as to whether she might eventually need an explant. PAST MEDICAL HISTORY: Delineated above. 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 Unfortunately, that kidney transplant failed. She restarted hemodialysis 09/2017. She has a history of limited scleroderma and lupus. History of Raynaud's. FAMILY HISTORY: Noncontributory. SOCIAL HISTORY: , lives with her , apartment, 14 steps in, without an elevator. She did not utilize an assistive device premorbidly. He works during the day and she was driving herself to dialysis, although he would assist at times. HABITS: No history of alcohol or tobacco abuse. ALLERGIES: VANCOMYCIN. MEDICATIONS: Please see the full medication listing. REVIEW OF SYSTEMS: She is very motivated. Complains of overall generalized weakness. No current chest pain, shortness of breath, abdominal discomfort. No focal lower extremity numbness. [facility] [address] [place] [address] CONSULTATION Name: KOURTNEY VANCE Room #: 210[facility] IN M.R.#: [id number] Admission: 09/17/18 Attend Phys: Claudine Donovan MD Discharge: Date of : 75 Report #: [id number] PHYSICAL EXAMINATION: GENERAL: She is a pleasant, slender 43-year-old -Mauritanian female in no obvious distress. VITAL SIGNS: Temperature 97.6, pulse 80, respirations 18, blood pressure 129/85. NEUROLOGIC: She is alert, pleasant, appears to be a good historian. Facies are symmetric. Functional range of motion of both upper extremities. Strength is grade 4- to 3+/5. DTRs are trace to 1. Lower extremities, no focal calf swelling, functional range of motion, strength is grade 3+4-/5. DTRs are trace to 1. No obvious sensory decrease to proprioception large toes. Functionally, she was up in therapies on 09/21/2018 with sit to stand, min assist. Gait was 30 feet, min assist with a front-wheeled walker. ASSESSMENT: A 43-year-old female with the following problem list: 1. Medical complexity with generalized debilitation. 2. Intermittent fevers in the setting of pancytopenia and diffuse malignancy. No evidence of malignancy identified and cultures are negative. 3. Immunosuppression to maintain her kidney graft. 4. Suspecting hypo-complementary vasculitis. 5. Systemic lupus erythematous, scleroderma. 6. End-stage renal disease, now on hemodialysis. 7. Persistent lymphadenopathy and cytopenia. 8. Clostridium difficile colonization. PLAN: The patient is a candidate who would benefit from a short acute in-hospital inpatient rehabilitation stay to maximize her strength, functional independence, mobility, ADLs, so that she can go home and be successful with discharge back to the home setting. She was readmitted after only being home for approximately 4 days. The multiple application support consultant physicians could continue to follow while she is on the acute in-hospital inpatient rehabilitation stay to monitor her multiple medical comorbidities while she is undergoing the therapy to maximize her strength and return back to the home setting. She is very motivated and has the tolerance for an acute in-hospital inpatient rehabilitation level of therapy. Insurance precertification issues to be checked and we will be glad to follow along with you. By: [id number] Berry Frances MD /nt
[2018-09-17 14:46] VITALS: BP 125/85
[2018-09-17 16:31] LABS: CALCIUM 7.7 mg/dL (8.5-10.1); CREATININE 5.2 mg/dL (0.6-1.0); POTASSIUM 4.3 mmol/L (3.5-5.1)
[2018-09-17 16:34] LABS: HEMATOCRIT 26.8 % (37.0-47.0); HEMOGLOBIN 8.9 gm/dL (12.0-15.0); MCH 27.4 pg (26.0-34.0); MCHC 33.1 g/dL (28.0-37.0); MCV 82.7 fL (80.0-100.0); PLATELET COUNT 77 thou/uL (150-400); RBC 3.24 mil/uL (4.20-5.00); RDW 20.7 % (10.5-14.5)
[2018-09-17 16:38] LABS: WBC 1.9 thou/uL (4.0-11.0)
[2018-09-17 16:40] LABS: TROPONIN-I 0.18 ng/mL (<0.06)
[2018-09-17 17:11] LABS: ABSOLUTE NEUTROPHILS 1.2 thou/uL (1.4-8.2)
[2018-09-17 17:12] LABS: ANISOCYTOSIS 2+; OVALOCYTES OCCASIONAL
[2018-09-17 17:13] LABS: SCHISTOCYTES OCCASIONAL
[2018-09-17 20:03] VITALS: BP 110/74
[2018-09-17 20:12] VITALS: BP 110/75
[2018-09-17] MEDS ORDERED: ONDANSETRON HCL4 M2 PO (20:50)
[2018-09-18 00:33] VITALS: BP 97/65
--- NOTE | 2018-09-18 02:54 | NUR ---
ADMITED FROM ED AROUND 2099 FOR WEAKNESS, FEVER, ELEVATED TROP. ADMISSION AND MED RECONCIL COMPLETE, JARED CALLED, ORDERS RECIEVED. PT C/O R ARM PIT PAIN CONTROLED WITH PRN PAIN MEDS PER EMAR- PT STATED BIOPSY DONE SUNDAY STERI STRIPS IN PLACE [facility]. LEFT CHEST DIALASIS ACCESS- PT STATED HAD DIALYSIS SUNDAY ( , , SUN ). ANURIC. CARDIO AND RENAL CONSULTED. ISO MAINTAINED- PT STATED HAD CDIF ABOUT 2 WEEKS AGO. WILL CONTINUE TO MONITOR AND WITH POC
[2018-09-18 04:49] VITALS: BP 88/59
[2018-09-18 08:08] VITALS: BP 99/65
--- NOTE | 2018-09-18 08:34 | EKG ---
[address] [place] [address] ELECTROCARDIOGRAM REPORT Name: KOURTNEY VANCE Room #: 210-P ADM IN M.R.#: [id number] Admission: 09/17/18 Attend Phys: Claudine Donovan MD Discharge: Date of : 75 Report #: [id number] THIS REPORT FOR: //name// [facility] ED Test Date: 2018-09-17 Test Time: 16:11:47 Pat Name: KOURTNEY VANCE Department: Room: 210 Gender: F Emt/Paramedic: CARLITOS : 1975 Requested By: Brock Mejia Order Number: [id number] MD: Rg Swan Measurements Intervals [place] Rate: 108 P: 97 HI: 167 QRS: 145 QRSD: 84 T: 102 QT: 366 QTc: 491 Interpretive Statements Sinus tachycardia Low voltage with right axis deviation Anteroseptal infarct, old Nonspecific T abnormalities, lateral leads Lateral infarct, age indeterminate Compared to ECG 09/14/2018 03:13:30 ST and T wave abnormality is less pronounced Electronically Signed On 09-18-2018 8:34:16 CDT by Rg Swan [email or web address] <ELECTRONICALLY SIGNED> By: Rg Swan MD, [facility] 09/18/18 0834 1611 1611 Rg Swan MD, [facility] /EPI
--- NOTE | 2018-09-18 09:32 | 2DMMODE ---
[facility] [address] [place] [address] 2 D/M-MODE ECHOCARDIOGRAM Name: KOURTNEY VANCE Room #: 210-P ADM IN M.R.#: [id number] Admission: 09/17/18 Attend Phys: Wyatt Rodgers Discharge: Date of : 75 Date of Service: 09/18/18 0932 Report #: [id number] THIS REPORT FOR: //name// APPROVED REPORT Study performed: 09/18/2018 08:47:06 EXAM: Comprehensive 2D, Doppler, and color-flow Echocardiogram Patient Location: Bedside Room #: 210 Status: routine BSA: 1.61 HR: 84 bpm BP: 99/65 mmHg Rhythm: NSR Other Information Study Quality: Good Indications Hypotension Elevated Troponin Hypertension/HDD 2D Dimensions RVDd: 31.97 mm IVSd: 11.54 (7-11mm) LVOT Diam: 18.62 (18-24mm) LVDd: 48.52 mm PWd: 13.23 (7-11mm) Ascending Ao: 22.42 (22-36mm) LVDs: 37.37 (25-40mm) Aortic Root: 26.19 mm IVC: 12.00 mm Volumes Left Atrial Volume (Systole) Single Plane 4CH: 83.21 mL Single Plane 2CH: 75.00 mL LA ESV Index: 56.00 mL/m2 Aortic Valve AoV Peak Ernie.: 1.42 m/s AO Peak Gr.: 8.06 mmHg LVOT Max P.84 mmHg LVOT Max V: 0.98 m/s ENID Vmax: 1.88 cm2 Mitral Valve E/A Ratio: 1.4 [facility] [address] [address] 2 D/M-MODE ECHOCARDIOGRAM Name: KOURTNEY VANCE Room #: 210-P ADM IN [facility].#: [id number] Admission: 09/17/18 Attend Phys: Wyatt Rodgers Discharge: Date of : 75 Date of Service: 09/18/18 0932 Report #: [id number] MV Decel. Time: 134.48 ms MV E Max Ernie.: 1.26 m/s MV A Ernie.: 0.89 m/s MV PHT: 39.00 ms IVRT: 100.35 ms Pulmonary Valve PV Peak Ernie.: 0.97 m/s PV Peak Gr.: 3.74 mmHg Pulmonary Vein P Vein S: 0.32 m/s P Vein A: 0.15 m/s P Vein D: 0.31 m/s P Vein A Dur.: 62.3 msec P Vein S/D Ratio: 1.03 Tricuspid Valve TR Peak Ernie.: 2.46 m/s TR Peak Gr.: 24.29 mmHg PA Pressure: 29.00 mmHg Left Ventricle The left ventricle is normal size. Mild concentric left ventricular hypertrophy. Left ventricular systolic function is borderline. LVEF is 50%. Left ventricular filling pattern is normal for age. Right Ventricle The right ventricle is normal size. The right ventricular systolic function is normal. Atria Left atrium is dilated. The right atrium size is normal. Aortic Valve The aortic valve is normal in structure. Trace to mild aortic regurgitation. There is no aortic valvular stenosis. Mitral Valve The mitral valve is normal in structure. Mild mitral regurgitation. No evidence of mitral valve stenosis. Tricuspid Valve The tricuspid valve is normal in structure. There is trace tricuspid regurgitation. Estimated PAP 29 mmHg. There is no pulmonary hypertension. Pulmonic Valve The pulmonary valve is normal in structure. Trace to mild pulmonic [facility] [address] [place] [address] 2 D/M-MODE ECHOCARDIOGRAM Name: KOURTNEY VANCE Room #: 210-P [facility] IN M.R.#: [id number] Admission: 09/17/18 Attend Phys: Wyatt Rodgers Discharge: Date of : 75 Date of Service: 09/18/18 0932 Report #: [id number] regurgitation. Great Vessels The aortic root is normal in size. IVC is normal in size and collapses >50% with inspiration. Pericardium Mild circumferential pericardial effusion. <Conclusion> The left ventricle is normal size. LVEF is 50%. Left atrium is dilated. The aortic valve is normal in structure. Trace to mild aortic regurgitation. The mitral valve is normal in structure. Mild mitral regurgitation. The tricuspid valve is normal in structure. There is trace tricuspid regurgitation. Estimated PAP 29 mmHg. There is no pulmonary hypertension. The pulmonary valve is normal in structure. Trace to mild pulmonic regurgitation. Mild circumferential pericardial effusion. <ELECTRONICALLY SIGNED> By: Kenton Paul MD 09/18/1832 1 1 Kenton Paul MD /INF
--- NOTE | 2018-09-18 14:17 | NUR ---
ASSUMED CARE AT 0700, SHIFT ASSESSMENT DONE, MEDS GIVEN, NPO SINCE THIS AM FOR STRESS TEST. PAIN MED GIVEN FOR RIGHT ARMPIT PAIN. HAD AN ECHO DONE AT BEDSIDE. WILL CONTINUE TO ASSESS AND ASSIST WITH ADLs NEEDED.
[2018-09-18 16:16] VITALS: BP 124/90
[2018-09-18 16:30] VITALS: BP 128/59
[2018-09-18 18:51] VITALS: BP 115/78
[2018-09-19 03:26] VITALS: BP 121/88
--- NOTE | 2018-09-19 04:17 | NUR ---
RECEIVED PT'S CARE AT 1920; PT. ON ISOLATION; PT. ON BED; RESTING WITH EYES CLOSED; INTERRUMPTED; AOX4; REQUESTED PRN PAIN MEDICATION WITH HS MEDICATIONS; DURING ASSESSMENT C/O PAIN OVER R. ARM PIT; PRN PAIN MEDICATION GIVEN; REFUSED SCHEDULED TUMS; ST. IT TAKES WITH MEALS; WILL PASS ON REPORT; AT MIDNIGHT PT. C/O HEART BURN; ST. TAKING PROTONIX BID; 30 MIN BEFORE BREAKFAST & DINNER; NO PROTONIX SCHEDULED; EARLY REFUSED SCHEDULED ALEXA GIVEN; UPSET DUE TO MEDICATION HAS NOT BEING ORDERED AT HOME; INFORM WILL PASS ON REPORT & WROTE IT DOWN ON BOARD; REQUESTED PRN PAIN MEDICATION AT 0200; PRN PAIN MEDICATION GIVEN; RE-ASSESSMENT; PT. SLEEPING; ASSESSMENT CHARGED; FOLLOWING POC; WILL PASS ON REPORT.
[2018-09-19 05:17] LABS: HEMATOCRIT 24.7 % (37.0-47.0); HEMOGLOBIN 8.2 gm/dL (12.0-15.0); MCH 27.7 pg (26.0-34.0); MCV 83.8 fL (80.0-100.0); PLATELET COUNT 61 thou/uL (150-400); RBC 2.95 mil/uL (4.20-5.00); RDW 20.9 % (10.5-14.5); WBC 2.1 thou/uL (4.0-11.0)
[2018-09-19 05:24] LABS: ALBUMIN 1.8 g/dL (3.4-5.0); CALCIUM 7.1 mg/dL (8.5-10.1); TOTAL BILIRUBIN 0.4 mg/dL (<0.1-1.0); TOTAL PROTEIN 7.4 g/dL (6.4-8.2)
[2018-09-19] MEDS ORDERED: PROTONIX40 M1 PO (05:33)
[2018-09-19 05:38] LABS: CREATININE 7.5 mg/dL (0.6-1.0)
[2018-09-19 06:54] LABS: ABSOLUTE NEUTROPHILS 1.3 thou/uL (1.4-8.2); ANISOCYTOSIS 2+; PLATELET ESTIMATE DECREASED; POIKILOCYTOSIS 2+
[2018-09-19 08:30] VITALS: BP 132/92
--- NOTE | 2018-09-19 09:37 | H ---
[facility] [address] [address] HISTORY AND PHYSICAL Name: KOURTNEY VANCE Room #: 210-P ADM IN M.R.#: [id number] Admission: 09/17/18 Attend Phys: Claudine Donovan MD Discharge: Date of : 75 Report #: [id number] THIS REPORT FOR: //name// CC: Cory Donovan DATE OF SERVICE: 09/17/2018 CHIEF COMPLAINT: Weakness and fever. HISTORY OF PRESENT ILLNESS: The patient was readmitted again from the office with weakness and fever since being discharged last week. She has been too weak to barely attend outpatient hemodialysis. She had difficulty getting in and out of bed, out of the house, in the car for dialysis. She came to the office yesterday and had a low-grade temperature of 100.1. She complained of nausea and anorexia; however, she has not been experiencing any further diarrhea. She recently had 2 week or longer hospital stay to workup of fever and GI symptoms. At that point, basically cultures were negative, although, she had a C. diff toxin that was positive and EBV PCR from the blood. I spoke with Dr. Ornelas who felt that these were probably colonization and not responsible for her fever. Blood cultures were negative. She had a bone marrow biopsy that was negative and a lymph node needle aspirate, which is indeterminate. A lymph node biopsy surgically removed by Dr. Hung from last is still pending on the pathology results. However, she had a lymph node biopsy in 12/2017 from the left groin that was negative. 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 Unfortunately, that kidney apparently failed and she restarted hemodialysis in 09/2017. Sometime in 2018, it is noted that she stopped her immunosuppression medication and has not taken anything for quite some time. In July of 2018, she had a CT of the abdomen, which showed mild hydronephrosis and may be signs of pyelonephritis involving the transplanted kidney. I spoke with [facility] yesterday, and at this point, they did not have the need to admit to their hospital and recommended continued workup here. There has been ongoing lymphadenopathy and thrombocytopenia without a definitive diagnosis at this point. PAST MEDICAL HISTORY: Hypertension, end-stage renal disease, failed kidney transplant from 2010, now back on hemodialysis since 09/2017; lupus nephritis, history of limited scleroderma and lupus, history of Raynaud's syndrome. PAST SURGICAL HISTORY: As above. FAMILY HISTORY: Noncontributory. SOCIAL HISTORY: She is and lives with her . No chronic alcohol [address] [address] HISTORY AND PHYSICAL Name: KOURTNEY VANCE Room #: 210-P [facility] IN M.R.#: [id number] Admission: 09/17/18 Attend Phys: Claudine Donovan MD Discharge: Date of : 75 Report #: [id number] or tobacco use. ALLERGIES: VANCOMYCIN. MEDICATIONS: Valtrex, lisinopril, Flonase, Tums, Zyrtec, Cardura, amlodipine, Coreg, Protonix, hydrocodone, and Colestid. REVIEW OF SYSTEMS: She was actually complaining of constipation. Denies any diarrhea. No headache, chest pain, productive cough, shortness of breath, vomiting, dysuria, myalgias, syncope or fall. OBJECTIVE: VITAL SIGNS: Temperature 36.9, pulse 88, respirations 19, blood pressure 99/65, O2 sat 95% on room air. GENERAL: She is awake and alert, lying in bed, in no distress. HEAD AND NECK: Unremarkable. LUNGS: Clear. HEART: Regular. ABDOMEN: Soft, normoactive bowel sounds. EXTREMITIES: No edema. LABORATORY DATA: White count was 1.9, hemoglobin 8.9, and platelets 77. Creatinine is 5.2. Echocardiogram showed EF of 50%. ASSESSMENT: 1. Chronic lymphadenopathy. 2. Chronic pancytopenia. 3. End-stage renal disease, on hemodialysis. 4. Failed kidney transplant 09/2017. 5. Hypertension. 6. Fever. 7. Chronic anorexia and weight loss. 8. Medical illness debility. PLAN: Renal services back involved to manage dialysis. I asked ID and Hematology to follow up on studies from last week and are still waiting for the pathology from the lymph node surgical biopsy from last . I have ordered an ultrasound of her transplanted kidney. My question whether there is chronic rejection or chronic infection that is contributing to her current symptoms. We will let everybody reassess her and see whether interventions would need to pursue. It seems to send her on infectious or transplanted kidney type issue at this point. Since she had a negative lymph node biopsy in [address] [place] [address] HISTORY AND PHYSICAL Name: KOURTNEY VNACE Room #: 210-P [facility] IN M.R.#: [id number] Admission: 09/17/18 Attend Phys: Claudine Donovan MD Discharge: Date of : 75 Report #: [id number] November and bone marrow biopsy from 2 weeks ago, it seems like malignancy is less likely. <ELECTRONICALLY SIGNED> By: Berry Sal MD 09/19/18 0937 1220 1253 Berry Sal MD /nt
[2018-09-19 11:20] VITALS: BP 150/100
--- NOTE | 2018-09-19 14:03 | NUR ---
met with patient. She resides with spouse in apt on second story so she has multiple steps. 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 She dializes at [facility] tues, thurs, sat. She usu drives herself. Patient reports she was recently dc from hospital and felt week. She went to stay at her mothers. She readmitted with weakness and lupus flare. Patient may benefit from post acute care. [facility] list in room for review. Requested therapy evals.
[2018-09-19 15:50] VITALS: BP 189/81
[2018-09-19 18:58] VITALS: BP 120/82
--- NOTE | 2018-09-19 19:54 | NUR ---
PATIENT ALERT AND ORIENTED WITH DIALYSIS TODAY AND FEELING WEAK. BY THE AFTERNOON PATIENT FEELING STRONGER AND EATING LUNCH. PATIENT IS VERY PARTICULAR ABOUT HER DIET AND WILL CALL DIETARY FOR SPECIAL REQUESTS.
[2018-09-20 03:06] VITALS: BP 130/93
--- NOTE | 2018-09-20 04:24 | NUR ---
RECEIVED PT'S CARE AT 1930; PT. ON BED; AOX4; ST. PAIN OVER R. ARMPIT 03/31; REQUESTED PRN PAIN MEDICATION WITH HS MEDICATION; DURING ASSESSMENT C/O PAIN; 09/28; PRN PAIN MEDICATION GIVEN; HS MEDICATION GIVEN; SBP ABOVE 100; TEMPERATURE ON THE 100s; REQUESTED HEATING PAD; EDUCATED ABOUT NOT HEAT WITH ELEVATED TEMPERATURE IN ORDER TO DECREASE IT; ST. UNDERSTANDING; AT MIDNIGHT TEMPERATURE WNL; REQUESTED TUMS; NO PRN TUMS; WILL PASS ON REPORT; ABLE TO REST THROUGH THE NIGHT WITH EYES CLOSED; HAD SOME SNACKS; REQUESTED MILK; ASSESSMENT CHARGED; FOLLOWING POC; WILL PASS ON REPORT.
[2018-09-20 09:24] VITALS: BP 120/88
[2018-09-20 12:25] VITALS: BP 139/95
[2018-09-20 15:19] VITALS: BP 126/84
--- NOTE | 2018-09-20 16:09 | NUR ---
SW reviewed chart and spoke with nursing. Pt is slowly progressing towards goals for discharge. SW met with pt at bedside to discuss post-acute plans. SNF list reviewed with pt. Pt requests referral to [facility] due to having onsite [facility] clinic. SW explained referral process and need for insurance authorization. Pt verbalized understanding. mission planner to fax referral to [facility]. No weekend discharge anticipated. Need additional therapy evaluations and notes for insurance auth. RACHEL is following to assist as needed with discharge planning.
--- NOTE | 2018-09-20 18:42 | NUR ---
AAOX4. VERY WEAK. TRANSIENT PAIN AND NAUSEA TREATED ORDERED. ASSISTED TO BR FOR FORMED BM. ANURIC. FREQUENT CHECKS; WILL CONTINUE TO MONITOR.
[2018-09-20 20:20] VITALS: BP 137/97
[2018-09-21 05:18] VITALS: BP 134/96
--- NOTE | 2018-09-21 05:20 | NUR ---
RECEIVED PT'S CARE AT 1920; PT. ON BED; AOx4; RELATIVE AT THE BED SIDE; REQUESTED ICE; DURING ASSESSMENT ST. FEELING DISCOMFORT; REQUESTED PRN PAIN MEDICATION; MEDICATION GIVEN; REQUESTED PRN ANTI-NAUSEA MEDICATION; MEDICATION GIVEN; AROUND 2229 PT. C/O HEART BURN; REQUESTED TUMS; PHYSICIAN CALLED; ORDERS RECEIVED; PT. INFORM OF ORDER; ST. UNDERSTANDING; NO REQUESTED AT THAT MOMMENT; ISOLATION [place]; THROUGH THE NIGTH ABLE TO REST WITH EYES CLOSED; ASSESSMENT CHARGED; FOLLOWING POC; MONITORING; WILL PASS ON REPORT.
[2018-09-21 16:15] VITALS: BP 134/77
[2018-09-21 16:58] VITALS: BP 122/86
--- NOTE | 2018-09-21 19:41 | NUR ---
Assumed pt care this am, isolation maintained , no bm has been noted today. Scheduled dialysis done today, pilled 2.5 liters. pain managed with medication partial relief was noted. POC followed, no signs of distress have been noted, VS stable.
[2018-09-21 20:28] VITALS: BP 124/89
[2018-09-22 04:00] VITALS: BP 124/92
--- NOTE | 2018-09-22 04:36 | NUR ---
PT LYING IN BED. DENIES NEED FOR PAIN MEDICATION. RESTING COMFORTABLY. NO NEEDS VOICED. CALL LIGHT WITHIN REACH. WILL CONTINUE TO PROVIDE FREQUENT OBSERVATION.
[2018-09-22 05:35] LABS: HEMATOCRIT 25.5 % (37.0-47.0); HEMOGLOBIN 8.5 gm/dL (12.0-15.0); MCH 27.5 pg (26.0-34.0); MCHC 33.2 g/dL (28.0-37.0); RBC 3.07 mil/uL (4.20-5.00); RDW 21.8 % (10.5-14.5); WBC 4.4 thou/uL (4.0-11.0)
[2018-09-22 05:50] LABS: ALBUMIN 1.7 g/dL (3.4-5.0); CALCIUM 7.1 mg/dL (8.5-10.1); CREATININE 4.1 mg/dL (0.6-1.0); POTASSIUM 4.5 mmol/L (3.5-5.1)
[2018-09-22 07:20] VITALS: BP 136/95
[2018-09-22 11:45] VITALS: BP 121/84
[2018-09-22 16:20] VITALS: BP 123/83
--- NOTE | 2018-09-22 17:33 | NUR ---
PT VISITED WITH FAMILY IN ROOM TODAY. GOWN AND LINEN CHANGED. PT INFORMS ME THAT SHE DOES NOT MAKE URINE. TOLERATING PO FOOD WELL. WILL CONTINUE TO ASSESS.
[2018-09-22 20:37] VITALS: BP 136/105
--- NOTE | 2018-09-23 04:26 | NUR ---
ASSUMED CARE AT 1900./ PT ALERT AND ORIENTED. VITALS STABLE. REPORTS GENERALIZED WEAKNESS THAT SHE REQUIRE EXTRA TIME WITH AMBULATION. PT REFUSES TO USE BEDSIDE COMMODE AND INSISTS ON AMBULATING TO BATHROOM DESPITE THE WEAKNESS. C/O NAUSEA AND ABDOMINAL PAIN. ZOFRAN AND PAIN MEDS GIVEN . SE EMAR. WILL CONTINUE TO FOLLOW CUREENT PLAN OF CARE.
[2018-09-23 05:04] VITALS: BP 126/91
--- NOTE | 2018-09-23 07:41 | HC ---
[facility] [place] [address] CONSULTATION Name: KOURTNEY VANCE Room #: 210-P ADM IN M.R.#: [id number] Admission: 09/17/18 Attend Phys: Claudine Donovan MD Discharge: Date of : 75 Report #: [id number] THIS REPORT FOR: //name// CC: Trent Donovan MD REASON FOR CONSULTATION: Follow up on cytopenias in bone marrow. HISTORY OF PRESENT ILLNESS: Please see recent consult note and discharge note for interval history. The patient is a 43-year-old female we had seen several months ago for lymphadenopathy. She has had both right groin lymph node and now recently right axillary lymph node that are reactive without infection or cancer or lymphoma. She also had a recent bone marrow biopsy done for cytopenia that does show mildly hypercellular and also some mild dyspoiesis. Note that flow cytometry and now cytogenetics are normal. I had a chance to talk to Dr. Osei Freitas earlier today. They were suspicious that the abnormalities may be related to her untreated lupus. The patient at that time did have a fever last night to 101.5. Does have what she describes some generalized weakness, does have ____ occasional some tongue dysesthesias and trouble movement according to her. She is not short of breath. She is swallowing okay, no new abdominal pain. She did have upper abdominal pain last time from the C. diff. She does have generalized weakness. No recent change in bowel habits. PAST MEDICAL HISTORY: Notable for the history of lymphadenopathy for almost 10 months now. Also history of lupus/rheumatoid arthritis/scleroderma followed by Dr. Osei Freitas, has not recently been treated. Also end-stage renal disease due to untreated or poorly treated untreated lupus, on dialysis, had a failed transplant. Also had acid reflux. Had a recent esophagitis, had a recent C. diff. History of EBV in blood in 08/2017, SOCIAL HISTORY: Not currently working. FAMILY HISTORY: No one recently diagnosed with cancer. Never smoker. No alcohol. MEDICATIONS: At this time in the hospital currently include calcium carbonate 500 with meals, loratadine 10 daily, valacyclovir 500 mg daily, fluticasone 2 sprays daily, guaifenesin 600 b.i.d., doxazosin 8 mg at bedtime, carvedilol [address] [address] CONSULTATION Name: KOURTNEY VANCE Room #: 210-P [facility] IN M.R.#: [id number] Admission: 09/17/18 Attend Phys: Claudine Donovan MD Discharge: Date of : 75 Report #: [id number] b.i.d., Zofran p.r.n., hydrocodone p.r.n., lisinopril stopped, colestipol held. PHYSICAL EXAMINATION: GENERAL: The patient appears her stated age. VITAL SIGNS: Height is 5 feet 6 and 167.6 cm. Weight is 120 pounds, 54.4 kilograms, currently recent temperature is 99.8, last night was 101.5. Recent blood pressure 132/92, O2 sat 96%, respirations 20, pulse 96-102. MOOD: She is alert and pleasant and conversant. NEUROLOGIC: Speech and thought pattern normal. Movement in all extremities are slightly weak. Right axilla not examined. LUNGS: Appear clear anteriorly without rhonchi, wheezes or rales. HEART: Appears regular rate. EXTREMITIES: Without clubbing or cyanosis. SKIN: Mostly intact. ASSESSMENT AND PLAN: 1. Lymphadenopathy and cytopenia after biopsy of 2 lymph nodes and now bone marrow does not show malignancy. Suspect that this is related to underlying autoimmune/lupus disorder. We will defer to Dr. Osei Freitas. 2. Cytopenias, follow serially. 3. Recent Clostridium difficile. No unusual difficulties. 4. Recent fevers, will defer to Infectious Disease and others. 5. Recent erosive esophagitis and gastritis from EGD 08/2018. The patient should continue acid blockers. 6. History of end-stage renal disease, dialysis per others. 7. Hypertension, meds per others. We will follow with you. <ELECTRONICALLY SIGNED> By: Nelson Chen MD 09/23/18 0741 0917 [id number] Nelson Chen MD /nt
[2018-09-23 08:17] VITALS: BP 115/74
--- NOTE | 2018-09-23 10:43 | NUR ---
FAXED REFERRAL LATE 09/[address] [facility] F/U WITH YULIANA IN ADM SHE RECEIVED REFERRAl AND WILL REVIEW. DCP TO FOLLOW.
[2018-09-23 12:34] VITALS: BP 129/85
--- NOTE | 2018-09-23 14:19 | NUR ---
ASSUMED CARE AT 0700, SHIFT ASSESSMENT DONE, MEDS GIVEN, VSS. DENIES ANY ABDOMINAL PAIN AND NAUSEA. TOLEARTING PO DIET, TOOK MEDS FINE. NSR ON TELE. ON ROOM AIR. WORKED WITH PHYSICAL THERAPHY, REHAB CONSULT IN. WILL CONTINUE TO ASSESS AND ASSIST WITH ADLs NEEDED.
[2018-09-23 19:02] VITALS: BP 139/98
[2018-09-23 20:08] VITALS: BP 149/105
[2018-09-23 23:19] VITALS: BP 140/101
--- NOTE | 2018-09-24 04:16 | NUR ---
1900. PT ALERT AND ORIENTED. C/O FEELING "FLUID OVERLOADED.". PT WAS SCHEDULED FOR DIALYSIS THIS MORNING. PT REQUESTED FOR RENAL DOCTOR TO BE CONDUCTED FOR A POSSIBLE DIALYSIS. DR MEYERS NOTIFIED. PT CONDITION COMMUNICATED. DR. MEYERS AUTHORIZED DIALYSIS AT 2300. 4L OF FLUIDS PULLED OFF. DIALYSIS COMPLETED AT 0400. PT TOLERATED THE PROCEDURE. WILL CONTINUE TO FOLLOW PLAN OF CARE
[2018-09-24 05:57] LABS: ALBUMIN 2.2 g/dL (3.4-5.0); CALCIUM 7.8 mg/dL (8.5-10.1); CREATININE 3.6 mg/dL (0.6-1.0); PHOSPHORUS 2.1 mg/dL (2.5-4.9); POTASSIUM 4.3 mmol/L (3.5-5.1)
[2018-09-24 12:06] VITALS: BP 132/87
--- NOTE | 2018-09-24 12:45 | NUR ---
Nutrition: Pt seen for LOS. Admitted for weakness, fever. Hx includes HTN, ESRD, lupus nephritis, kidney transplant (2010), now failed and restarted HD 09/2017. Pt is on a regular diet, just recently received last HD overnight with ~4L removed per nsg note. Stable weight x8 months (127# per 01/15/18, 128# per 09/13/18). No new weight, only weight was pt reported at 120#, but pt still weighed UBW 128# < 2 weeks ago at recent August admit. Eating 75-90% of many recent meals; 60% average overall x3 days. Is calling kitchen to change meals as needed for better po success. On phosphate binders and Romulus Caps MVI. Phos low at 2.1; no renal diet restrictions. Provided info on higher phos foods offered on menus. Pt denied further nutrition needs. Deemed low risk.
--- NOTE | 2018-09-24 13:44 | NUR ---
5N in process of auth for acute rehab. [facility] denied patient due to she being 43 and "they" felt patient appropriate for home health care. Patient with recent dc home and she felt she dc too soon. She reports she could not do steps to her apt and was staying at her mothers from prev dc. She drives herself to/from dialysis. Discussed with patient alerternate option of 5N, she could not say. She is optomistic her ins will auth for acute rehab casemgt following.
--- NOTE | 2018-09-24 14:11 | NUR ---
ASSUMED CARE AT 0700, SHIFT ASSESSMENT DONE, MEDS GIVEN, VSS. DENIES ANY PAIN, NAUSEA, VOMITING. NSR, ROOM AIR. SEEN BY PHYSICAL THERAPHY, SITTING UP IN THE CHIAR THIS AM. REHAB CONSULT IN. WILL CONTINUE TO ASSESS AND ASSIST WITH ADLs NEEDED
--- NOTE | 2018-09-24 15:25 | NUR ---
AUTHORIZATION REQUEST FOR ACUTE REHAB STAY INITIATED ON 09/23/18. CALL RECEIVED THIS DATE FROM [facility], [facility], DENYING ACUTE REHAB AUTHORIZATION. PEER TO PEER CAN BE COMPLETED BY CALLING . PATIENT REFERENCE NUMBER #[id number]. [employer] WORK[employer] INFORMED. THANK YOU FOR THIS REFERRAL.
--- NOTE | 2018-09-24 16:06 | NUR ---
patient denied acute rehab 5N by insurance. Sister monica at bedside. Sister is dc discharge planner SW at [facility]. She reviewed [facility] list and requests referrals to transitional care center, [facility] and [facility]. Plan to send referrals for review.
[2018-09-24 19:36] VITALS: BP 136/92
--- NOTE | 2018-09-25 03:50 | NUR ---
1900. PT ALERT AND ORIENTED. REPORTS FEELING BETTER. VITALS STABLE. STILL C/O ABDOMINAL DISCOMFORT. PT ENCOURAGED TO FOLLOW FLUID RESTRICTION. NO PAIN MEDICATIONS NEEDED. SCHEDULED FOR DIALYSIS THIS AM.
[2018-09-25 05:23] VITALS: BP 136/93
[2018-09-25 05:52] LABS: CALCIUM 7.6 mg/dL (8.5-10.1); PHOSPHORUS 2.1 mg/dL (2.5-4.9); POTASSIUM 4.6 mmol/L (3.5-5.1)
[2018-09-25 05:53] LABS: CREATININE 5.7 mg/dL (0.6-1.0)
[2018-09-25 10:08] VITALS: BP 156/104
--- NOTE | 2018-09-25 10:15 | NUR ---
FA[facility]ED [facility] SPOKE WITH [facility]BA SHE WILL HAVE BLAIR REVIEW REFERRAL. FAXED REFERRAL TO [facility] SPOKE WITH OSKAR IN ADM SHE RECEIVED REFERRAL AND WILL REVIEW. FAXED REFERRAL TO [facility] LEFT MSG WITH ADM. THAT PT HAS DIALYSIS AT [facility] AND WILL NEED TRANSPORT. DCP TO FOLLOW.
[2018-09-25 11:30] VITALS: BP 147/103
[2018-09-25] MEDS ORDERED: IPRAT-ALBUT 0.5-3 ML INH (12:30)
[2018-09-25] MEDS ORDERED: LISINOPRIL20 MG PO (12:31)
[2018-09-25] MEDS ORDERED: HYDROCODON-ACE1 EAC7 PO (12:31)
[2018-09-25] MEDS ORDERED: PREDNISONE 20 M20 M1 PO (12:32)
[2018-09-25 14:54] VITALS: BP 137/95
--- NOTE | 2018-09-25 15:36 | NUR ---
dicussed with patient [facility] and [facility] have returned call and accepting of patient for post acute care. Both can provide transport to dialysis clinic t,th,sat at [facility] with no charge. Patients first choice is [facility]. reequested [facility] seek auth for post acute care. Patient stable for dc today.
[2018-09-25 20:35] VITALS: BP 131/93
[2018-09-26] VITALS (7 sets, daily range): BP systolic 129–149; BP diastolic 96–106
--- NOTE | 2018-09-26 05:44 | NUR ---
PATIENTS CARES WERE ASSUMED AT SHIFT CHANGE. PATIENT WAS ASSESSED AND MEDS ERE PASSED. PATIENT WAS HELD TO HER 1200 CC FLIUD RESTRICTION. PATIENT DID USE 300 OF HER 1200 THIS SHIFT. HOURLY ROUNDING WAS DONE. THE BED IS IN A LOW AND LOCKED POSITION
--- NOTE | 2018-09-26 15:34 | NUR ---
PT AWARE AND AGREEABLE TO DC TO SNF AT [facility] TODAY PENDING INSURANCE AUTH. [place] IS WORKING ON SECURING AUTH FOR ADMISSION TODAY. DC ORDERS FAXED TO ADMISSIONS. THEY ARE AWARE OF OUTPT DIALYSIS ARRANGEMENTS FOR TOMORROW AT [facility] @10:45AM WELL SUNDAY. THEY WILL NEED TO RECONFIRM HER SCHEDULE BEYOND SUNDAY SHE IS NORMALLY A T-TH-SAT PT. PT IS AGREEABLE TO TRANSFER AND HOPING IT WILL BE TODAY VS TOMORROW. CHART COPY AND ORDERS ARE IN PLACE. NURSING TO CALL REPORT ONCE INS AUTH CONFIRMED AND TRANSPORT ARRANGED.
--- NOTE | 2018-09-26 18:17 | NUR ---
PT CARE ASSUMED APPROX 0700. PT ALERT AND ORIENTED X4. DENIES PAIN AND SOA. VSS. UP WITH MIN ASSIST TO CHAIR. PT WAS TO DISSCHARGE THIS SHIFT BUT INSURANCE AUTH UNOBTAINED AT THIS TIME. RENAL DR AND PCP NOTIFIED THAT PT DID NOT DISCHARGE. PT AGREEABLE AND UNDERSTANDABLE REGARDING NOT LEAVING. COMPLIANT WITH FLUID RESTRICTION. TOLERATING POC. NO DISTRESS NOTED.
--- NOTE | 2018-09-27 03:02 | NUR ---
ASSUMED CARE OF PT AT 2230 HRS. PT IS AOX4 AND LETS NEEDS BE KNOWN. PT WAS HUNGRY AND WAS GIVEN A SANDWITCH BOX. PT REPORTED SOME PAIN AND WAS TREATED WITH PRN MEDS. 550/1200 ML FLUIDS GIVEN THIS SHIFT. NO S/S OF ACUTE DISTRESS. WILL CONTINUE TO MONITOR.
--- NOTE | 2018-09-27 12:29 | NUR ---
PT DISCHARGING TODAY TO [facility] FOR SKILLED STAY FAXED DC ORDERS/SUMMARY TO FACILITY SPOKE WITH ERIC IN ADM HE RECEIVED DC ORDERS AND ARRANGED TRANSPORTATION BY [facility] FOR 1400 TODAY, PT TO NOTIFY FAMILY. UNIT NOTIFIED AND CHART COPY PER US. RN TO CALL REPORT TO [phone].
--- NOTE | 2018-09-27 14:25 | NUR ---
CARE TEAM IS TO DC TO [facility] THIS DAY. PT IS BEING PICKED UP VIA [facility]EL[facility]AN AT 1400. CHART COPY MADE AND ORDERS FAXED. REPORT TO BE CALLED TO . PT TO NOTIFY HER FAMILY. PT IS TO HAVE HEMO DIALYSIS SUNDAY AT 10:30 AT [facility] AND IS TO RESUME HER USUAL T,, SAT SCHEDULE AFTER THAT. NO OTHER CM INTERVETNION INDICATED. CASE CLOSED.
--- NOTE | 2018-09-27 15:01 | NUR ---
PT A&OX4, VSS, PAIN IN ARMPIT FROM PREVIOUS BIOPSY THREE WEEKS AGO. ARMPIT IS NOT OPEN, HAS STERISTRIP GOING ACROSS, NO DRAINAGE. THERE IS NO ORDER FOR THE ARMPIT. STERISTRIPS STILL INTACT. PATIENT DENIES SOA/CHEST PAIN. PATIENT HAD DIALYSIS TODAY, 2.8 LITERS TAKEN OFF. ALL BELONGINGS WITH PATIENT, AND IV REMOVED. PATIENT DISCHARGED TO [facility]
== END 2018-09-27 14:45 | DRG 808 ==
LOC: ER 14:45 → EROBS 19:06 → 2N 19:06 → 4W 09-26 22:33
PROVIDERS: Emergency Medicine; Internal Medicine Nephrology; Specialist; ADMIT Internal Medicine
PROC: 5A1D70Z Performance of Urinary Filtration, Intermittent, Less than 6 Hours Per Day (ICD-10-PCS; principal; 2018-09-19)
PROC: 5A1D70Z Performance of Urinary Filtration, Intermittent, Less than 6 Hours Per Day (ICD-10-PCS; 2018-09-20)
PROC: 5A1D70Z Performance of Urinary Filtration, Intermittent, Less than 6 Hours Per Day (ICD-10-PCS; 2018-09-23)
PROC: 5A1D70Z Performance of Urinary Filtration, Intermittent, Less than 6 Hours Per Day (ICD-10-PCS; 2018-09-24)
PROC: 5A1D70Z Performance of Urinary Filtration, Intermittent, Less than 6 Hours Per Day (ICD-10-PCS; 2018-09-27)
DX: D61.818 Other pancytopenia (principal); N18.6 End stage renal disease; E87.1 Hypo-osmolality and hyponatremia; N13.30 Unspecified hydronephrosis; I12.0 Hypertensive chronic kidney disease with stage 5 chronic kidney disease or end stage renal disease; Z94.0 Kidney transplant status; M06.9 Rheumatoid arthritis, unspecified; K21.9 Gastro-esophageal reflux disease without esophagitis; R59.1 Generalized enlarged lymph nodes; M32.9 Systemic lupus erythematosus, unspecified; M34.9 Systemic sclerosis, unspecified; I65.8 Occlusion and stenosis of other precerebral arteries; M32.14 Glomerular disease in systemic lupus erythematosus; R59.9 Enlarged lymph nodes, unspecified; D64.9 Anemia, unspecified; R06.6 Hiccough; D71 Functional disorders of polymorphonuclear neutrophils; Z88.1 Allergy status to other antibiotic agents; Z99.2 Dependence on renal dialysis
CPT/HCPCS: 10047; 10081; 32100

== ENCOUNTER 2018-11-04 18:12 | Emergency (ER) | payer OTHER ==
[~2018-11-04] VITALS: Ht 167.6 cm; Wt 58.1 kg
[~2018-11-04 18:12] MED LIST changes: +IPRAT-ALBUT 0.5-3 ML INH; +LISINOPRIL20 MG PO; +ONDANSETRON HCL4 M2 PO; +PREDNISONE 20 M20 M1 PO
[2018-11-04 19:25] LABS: HEMATOCRIT 31.6 % (37.0-47.0); HEMOGLOBIN 9.9 gm/dL (12.0-15.0); MCH 29.7 pg (26.0-34.0); MCHC 31.4 g/dL (28.0-37.0); MCV 94.7 fL (80.0-100.0); RBC 3.34 mil/uL (4.20-5.00); RDW 23.5 % (10.5-14.5); WBC 2.7 thou/uL (4.0-11.0)
[2018-11-04 19:29] LABS: CALCIUM 8.1 mg/dL (8.5-10.1); CREATININE 8.7 mg/dL (0.6-1.0); POTASSIUM 4.6 mmol/L (3.5-5.1)
[2018-11-04 19:36] LABS: ALBUMIN 2.6 g/dL (3.4-5.0); TOTAL BILIRUBIN 0.3 mg/dL (<0.1-1.0); TOTAL PROTEIN 8.4 g/dL (6.4-8.2)
[2018-11-04 19:53] LABS: PLATELET COUNT 95 thou/uL (150-400)
[2018-11-04 19:58] LABS: ABSOLUTE NEUTROPHILS 1.6 thou/uL (1.4-8.2); ANISOCYTOSIS 2+; POLYCHROMASIA OCCASIONAL
[2018-11-04 19:59] LABS: HYPOCHROMASIA SLIGHT; SCHISTOCYTES RARE
[2018-11-04 22:12] VITALS: BP 179/113
== END 2018-11-04 22:15 | disposition home or self-care (01) ==
LOC: ER 18:12
PROVIDERS: Nurse Practitioner Family
DX: D61.818 Other pancytopenia (principal); R20.2 Paresthesia of skin; R20.0 Anesthesia of skin; I12.9 Hypertensive chronic kidney disease with stage 1 through stage 4 chronic kidney disease, or unspecified chronic kidney disease; N18.9 Chronic kidney disease, unspecified; E78.5 Hyperlipidemia, unspecified; M32.9 Systemic lupus erythematosus, unspecified; M06.9 Rheumatoid arthritis, unspecified; Z88.1 Allergy status to other antibiotic agents; Z86.2 Personal history of diseases of the blood and blood-forming organs and certain disorders involving the immune mechanism